=== PATIENT | male | born 1945 | race Caucasian/White ===

== ENCOUNTER 2018-09-24 04:48 | Inpatient (IN) ==
--- NOTE | 2018-08-25 09:05 | PAT Medication Instructions ---
Medication Instructions Date of Service August 25, 2018 Home Medications albuterol sulfate 1 inh INHALATION QID PRN amlodipine 5 mg PO HS aspirin [Aspir-Low] 81 mg PO HS clopidogrel 75 mg PO QAM colesevelam [WelChol] 3 tab PO BID cranberry 1,000 mg PO QPM docusate sodium [Stool Softener] 100 mg PO BID fenofibrate 160 mg PO QPM finasteride 5 mg PO QPM glimepiride 2 mg PO QAM metformin 1,000 mg PO BID omeprazole 20 mg PO QAM tamsulosin 0.4 mg PO HS valsartan-hydrochlorothiazide 2 tab PO QAM ASK your prescriber and surgeon clopidogrel 75 mg PO QAM Per cardiology, OK to hold for 5 days before surgery. This will need to be held for at least 7 days (last dose Saturday 09/16) prior to surgery in order to do spinal anesthesia (the preferred method). STOP taking 48 hours before surgery colesevelam [WelChol] 3 tab PO BID fenofibrate 160 mg PO QPM DO NOT take the morning of surgery docusate sodium [Stool Softener] 100 mg PO BID glimepiride 2 mg PO QAM metformin 1,000 mg PO BID valsartan-hydrochlorothiazide 2 tab PO QAM Take morning of surgery With a small sip of water, OTHERWISE NOTHING TO EAT OR DRINK AFTER MIDNIGHT: albuterol sulfate 1 inh INHALATION QID PRN (if needed, and bring with you to the hospital) omeprazole 20 mg PO QAM Take evening before surgery albuterol sulfate 1 inh INHALATION QID PRN (if needed) amlodipine 5 mg PO HS aspirin [Aspir-Low] 81 mg PO HS cranberry 1,000 mg PO QPM docusate sodium [Stool Softener] 100 mg PO BID finasteride 5 mg PO QPM metformin 1,000 mg PO BID tamsulosin 0.4 mg PO HS Other Notes If you have any questions please call us at [phone] or [phone] or [phone] or [phone]
--- NOTE | 2018-08-25 13:09 | Anesthesiology Consultation ---
Date of Service August 25, 2018 Assessment & Plan (1) Encounter for pre-operative examination: CHECK BSG STAT AM DOS Chart Review Chart Review: Acceptable Risk for Surgery and Patient seen in Pre Admission Testing Cardiac clearance 07/16/2018: "From a cardiac standpoint he is currently stable. Symptoms of dyspnea on exertion as well as exercise tolerance is now improved... I recommended him to continue current medical therapy. Recognition is to continue dual antiplatelet therapy until December. He may proceed with knee replacement surgery. The risk is average for perioperative cardiovascular event. Aspirin can be held for 5-7 days and Plavix can be held for 5 days prior to surgery if significant bleeding is expected. The rest of the cardiac medical therapy should be continued perioperatively." *pt aware that Plavix must be held x 7 days for spinal. He will check with cardio re: holding Plavix longer. *PT IS A DIFFICULT INTUBATION-- H/O FIBEROPTIC INTUBATION; PT CARRIES NOTE FROM [facility] RE: DIFFICULT INTUBATION (IN CHART)* Teaching & Discussion Instructed NPO after midnight before surgery, except medications with 15 cc of water. Medication instructions provided according to the PAT guidelines. Plavix instructions per cardiology and surgeon. Patient is aware the Plavix must be held for at least 7 days prior for SAB. Cardio clearance states Plavix may be held for 5 days. Patient made aware, pt to check with cardiology to see if can be held x 7 days. History Surgery Operation Date: 09/24/18 08:45 Proposed Procedures p Right Total Knee Arthroplasty - Alexy Dale MD Height/Weight Height: 5 ft 8 in Weight: 117.3 kg Allergies Allergy/AdvReac Type Severity Reaction Status Date / Time atorvastatin Allergy Intermediate Muscle Pain Verified 08/19/18 11:46 erythromycin base Allergy Intermediate UPSET Verified 08/19/18 11:46 STOMACH ezetimibe [From Zetia] Allergy Intermediate STOMACH Verified 08/19/18 11:46 PAIN fluvastatin Allergy Intermediate NECK PAIN Verified 08/19/18 11:46 niacin Allergy Intermediate HEART Verified 08/19/18 11:46 PALPITATIONS pravastatin Allergy Intermediate MUSCHLE Verified 08/19/18 11:46 ACHES Quinolones Allergy Intermediate SLEEP Verified 08/19/18 11:46 DISTURBANCE simvastatin Allergy Intermediate MUSCHLE Verified 08/19/18 11:46 ACHE Penicillins Allergy Mild Rash Verified 08/19/18 11:46 KASSY Inhibitors AdvReac Mild Cough Verified 08/19/18 11:46 Medications Home Medications Medication Instructions Recorded Confirmed Last Taken albuterol sulfate 1 inh INHALATION QID PRN 08/19/18 08/19/18 Unknown amlodipine 5 mg PO HS 08/19/18 08/19/18 Unknown aspirin [Aspir-Low] 81 mg PO HS 08/19/18 08/19/18 Unknown clopidogrel 75 mg PO QAM 08/19/18 08/19/18 Unknown colesevelam [WelChol] 3 tab PO BID 08/19/18 08/19/18 Unknown cranberry 1,000 mg PO QPM 08/19/18 08/19/18 Unknown docusate sodium [Stool Softener] 100 mg PO BID 08/19/18 08/19/18 Unknown fenofibrate 160 mg PO QPM 08/19/18 08/19/18 Unknown finasteride 5 mg PO QPM 08/19/18 08/19/18 Unknown glimepiride 2 mg PO QAM 08/19/18 08/19/18 Unknown metformin 1,000 mg PO BID 08/19/18 08/19/18 Unknown omeprazole 20 mg PO QAM 08/19/18 08/19/18 Unknown tamsulosin 0.4 mg PO HS 08/19/18 08/19/18 Unknown valsartan-hydrochlorothiazide 2 tab PO QAM 08/19/18 08/19/18 Unknown Past Medical History Medical History Anemia BPH (benign prostatic hyperplasia) CAD (coronary artery disease) S/P PCI to LAD with BMS 12/2017 after failed stress test done to evaluate dizziness and SOB. Cancer PRE-CANCEROUS CELLS REMOVED ON SKIN Chronic back pain LOWER BACK Diabetes mellitus, type 2 Hyperlipidemia Hypertension Osteoarthritis Sleep apnea CPAP Past Family History Family History Mother Family history of diabetes mellitus Brother Family history of diabetes mellitus Family hx of colon cancer Father Family hx of colon cancer Past Surgical History Surgical History Difficult airway for intubation PT NOTED HAS LETTER R/T DIFF. AIRWAY WITH LEFT TKA ([place]) 2012 H/O toe surgery History of appendectomy History of cardiac cath DECEMBER 2017 History of carpal tunnel release History of colonoscopy History of heart artery stent DECEMBER 2017-BMS to LAD History of tooth extraction History of total knee replacement LEFT Hx of prostate biopsy Past Anesthesia History Difficult Airway (h/o fiberoptic intubation, pt has letter in chart for this) and No Family Hx of Anesthesia Complications History of PONV No Motion Sickness Screening History of Motion Sickness: Yes (occ) Social History Smoking Status: Never smoker Do You Dip or Chew Tobacco: No Hx Alcohol Use: Yes Alcohol type: beer and wine alcohol intake frequency: holidays/special occasions only Hx Substance Use: No substance use type: does not use Exercise / Class Metabolic Activity III < 4 Walking/Shop/Light housework (+SOB "huffing and puffing" with 1 FOS, no chest pain.) Review of Systems Pt denies any recent chest pain, shortness of breath, palpitations, cough, fever or URI. Physical Exam Vital Signs BP: 114/69 P: 64bpm SPO2: 98% RA T: 98.3 F R: 16 ENMT Mouth: + dentures (partial upper); no chipped teeth and no loose teeth Thyromental Distance: < 3.5 Finger Breadths Mallampati Class: II Neck + thick neck (VERY THICK), + limited neck extension and + facial hair (short trimmed goatee) Respiratory normal respiratory effort Auscultation: lungs clear to auscultation bilaterally Cardiovascular Rate/Rhythm: regular rate and regular rhythm Heart Sounds: no murmur Vessels: no carotid bruit Extremities: no edema Testing Electrocardiogram Date: 03/19/18 Findings: + SB @ (58) Frequent PVCs. Right bundle branch block. Chest X-Ray Date: 03/20/18 Stable appearance of the chest. No evidence of acute cardiopulmonary disease. Echocardiogram Date: 05/21/18 EF: 55% LV systolic function is normal. Top normal to mildly dilated left ventricular chamber size. LV wall thickness is mildly increased. Left ventricular wall motion is normal. Right ventricular cavity size is normal. Left atrium is moderately enlarged. Right atrial size is normal. There is aortic valve sclerosis without stenosis or significant regurgitation. No pericardial effusion noted. Stress Test Date: 07/15/17 Type: exercise Resting EF: 71% Small sized partially reversible defect of mild intensity present involving apical inferior segment. This may suggest small area of myocardial ischemia. No EKG evidence of Lexiscan induced myocardial ischemia. Small sized fixed defect of mild intensity present involving the apex. This is probably an attenuation artifact. Gated SPECT images revealed normal myocardial thickening and wall motion. Cardiac Catheterization Date: 01/12/18 Intervention: + BMS placed and + PCI (distal LAD) The coronary arteries have diffuse minor irregularities with nonobstructive coronary artery disease and have significant 1 vessel disease. There was complete revascularization achieved. The percutaneous coronary intervention of the distal LAD was successful. Other Testing Holter monitor 02/18/2018 Duration: 24 hours. Quality: Good. Dominant rhythm is sinus bradycardia with right bundle branch block. Rare isolated PACs. Rare PVCs with 2 episodes of ventricular triplets. No symptoms reported. Laboratory Results 08/25/18 13:49 03 13:49 Blood Type A Positive 08/25/18 13:49 Antibody Screen NEGATIVE 08/25/18 13:49 PT 10.8 Seconds (9.0-12.0) 08/25/18 13:49 INR 1.1 (0.9-1.1) 08/25/18 13:49 APTT 25.4 Seconds (21.0-31.0) 08/25/18 13:49 Hemoglobin A1c 6.9 % (4.5-5.6) H 08/25/18 13:49
[2018-08-25 15:52] LABS: Basophils # (auto) 0.02 K/uL (0-0.2); Basophils % (auto) 0.5 %; Eosinophils # (auto) 0.01 K/uL (0-0.5); Eosinophils % (auto) 0.3 %; Hematocrit (blood only) 37.8 % (42-52); Hemoglobin 12.8 g/dL (14.0-18.0); Immature Granulocytes # (auto) 0.01 K/uL (0.00-0.02); Immature Granulocytes % (auto) 0.3 %; Lymphocytes # (auto) 0.97 K/uL (1.2-3.4); Lymphocytes % (auto) 25.9 %; Mean Corpuscular Hgb Conc 33.9 g/dL (32-36); Mean Corpuscular Volume 86.1 fL (80-100); Mean Platelet Volume 10.1 fL (7.4-10.4); Monocytes % (auto) 18.7 %; Neutrophils # (auto) 2.04 K/uL (1.4-6.5); Neutrophils % (auto) 54.3 %; Platelet Count 196 K/uL (130-400); RDW Coefficient of Variation 14.4 % (11.5-14.5); RDW Standard Deviation 45.2 fL (36.4-46.3); Red Blood Count 4.39 M/uL (4.7-6.1); White Blood Count 3.75 K/uL (4.8-10.8)
[2018-08-25 16:02] LABS: INR 1.1 (0.9-1.1); Partial Thromboplastin Ratio 0.9; Partial Thromboplastin Time 25.4 Seconds (21.0-31.0); Prothrombin Time 10.8 Seconds (9.0-12.0)
[2018-08-25 16:19] LABS: Albumin Level 3.8 gm/dl (3.4-5.0); BUN Creatinine Ratio 16.4 (10-20); Calcium 9.2 mg/dl (8.5-10.1); Creatinine Clr Calc Pharmacy 45.3 ml/min; Est GFR (African American) 42.6; Est GFR (Non-African American) 36.8; Potassium 4.5 mmol/L (3.5-5.1)
[2018-08-25 16:38] LABS: Estimated Average Glucose 151 mg/dl; Hemoglobin A1C 6.9 % (4.5-5.6)
--- NOTE | 2018-09-23 18:10 | History and Physical Report ---
DATE OF ADMISSION: 09/24/2018 CHIEF COMPLAINT: Chronic right knee pain. HISTORY OF PRESENT ILLNESS: This is a 72-year-old male patient of Dr. Dale'juan manuel complaining of chronic right knee pain, longstanding, now progressively getting worse. The patient has failed conservative treatment including intraarticular injections, home exercise program and the use of a brace. The patient has increased pain with weightbearing activities and his pain does interfere with his activities of daily living. The patient has been diagnosed with end-stage osteoarthritis per clinical and radiographic exam. PAST MEDICAL HISTORY: Hypertension, hypercholesterolemia, sleep apnea with CPAP, diabetes mellitus, rheumatoid arthritis, neck problems, low back problems, acid reflux, obesity, BPH. PAST SURGICAL HISTORY: Left knee replacement, appendectomy, carpal tunnel release, coccygeal cyst removal, toe surgery. FAMILY HISTORY: Noncontributory. REVIEW OF SYSTEMS: Chronic right knee pain and instability. Otherwise, denies any shortness of breath, chest pain, nausea, vomiting or other joint complaints. MEDICATIONS: Omeprazole 20 mg daily, valsartan 80/12.5 daily, fenofibrate 150 mg daily, metformin 1000 mg twice daily, Welchol 625 mg 6 tablets daily, vitamin B12, aspirin 81 mg daily, finasteride 5 mg daily, oxybutynin 5 mg twice daily. ALLERGIES: INCLUDE KASSY INHIBITORS, ATORVASTATIN, ERYTHROMYCIN, LOVASTATIN, NIACIN, PENICILLIN, PRAVASTATIN, QUINOLONES, SIMVASTATIN. PHYSICAL EXAMINATION: GENERAL: Well-developed, well-nourished 72-year-old male in no acute distress. He is alert and oriented x3 and pleasant. HEENT: Normocephalic, atraumatic. Extraocular motions are intact. Pupils are equal, reactive to light. HEART: Regular rate and rhythm, no murmurs. LUNGS: Clear. ABDOMEN: Soft, nontender, bowel sounds are present. EXTREMITIES: Right knee 0-125 degrees of limited range of motion. He has medial joint line tenderness with a positive effusion. He has crepitation with passive range of motion. He has 5/5 strength. NEUROLOGIC: Neurovascularly he is intact in his right lower extremity. DIAGNOSES: Right knee end-stage osteoarthritis, hypertension, hypercholesterolemia, sleep apnea with CPAP, diabetes mellitus, rheumatoid arthritis, neck problems, sciatica, acid reflux, obesity and benign prostatic hypertrophy. PLAN: The patient was advised of his diagnosis. Indications, risks, benefits, postop course have all been reviewed. The patient wishes to proceed with a right total knee arthroplasty. Necessary consent forms, preoperative testing and clearances will be obtained.
[2018-09-24] MEDS ORDERED: FAMOTIDINE 20 MG TAB PO SCH (06:00)
[2018-09-24] MEDS ORDERED: ACETAMINOPHEN 500 MG TAB PO SCH (06:00)
[2018-09-24] MEDS ORDERED: METOCLOPRAMIDE HCL 10 MG TABLET PO SCH (06:00)
[2018-09-24] MEDS ORDERED: GABAPENTIN 300 MG PO SCH (06:00)
[2018-09-24] MEDS ORDERED: ROPIVACAINE 0.5% HCL/PF 150 MG, BUPIVACAINE 0.5% MPF 30 ML, EPINEPHrine 30MG/30ML (OR U... INFIL SCH (06:00)
[2018-09-24] MEDS ORDERED: VANCOMYCIN HCL 1,750 MG in SODIUM CHLORIDE 0.9% 500 ML IV SCH ×2 (06:00→20:00)
[2018-09-24] MEDS ORDERED: CeleBREX 200 MG CAP PO SCH (06:00)
[2018-09-24] MEDS ORDERED: LR 500ML BOLUS, THEN 15ML/HR IV SCH (06:00)
[2018-09-24] MEDS ORDERED: ROPIVACAINE 0.5% 5 MG/ML 30 ML VIAL ONE (06:25)
[2018-09-24] MEDS ORDERED: BUPIVACAINE 0.5 % 5 MG/1 ML PF 10ML VIAL ONE (06:25)
[2018-09-24] MEDS ORDERED: fentaNYL citrate 100 MCG/2 ML VIAL ONE (06:51)
[2018-09-24] MEDS ORDERED: MIDAZOLAM HCL 1 MG/ML 2ML VIAL ONE ×3 (06:51→09:15)
[2018-09-24] MEDS ORDERED: POVIDONE-IODINE OP SOLN 30 ML BTL ONE (07:03)
[2018-09-24] MEDS ORDERED: BACITRACIN INJ 50,000 UNIT VIAL ONE (07:03)
[2018-09-24] MEDS ORDERED: ORTHO JOINT ANESTHETIC ONE (07:03)
--- NOTE | 2018-09-24 07:17 | History & Physical Bridge Note ---
Date of Service September 24, 2018 History & Physical Bridge Note I have examined the patient, reviewed the History & Physical and in the interval since the performance of the History & Physical I have noted the following changes of clinical significance: no changes noted
[2018-09-24] MEDS ORDERED: ATROPINE SULFATE 0.1 MG/ML 10ML SYR IV PRN (08:12)
[2018-09-24] MEDS ORDERED: ONDANSETRON INJ 2 MG/ML 2 ML VIAL IV PRN ×2 (08:12→10:13)
[2018-09-24] MEDS ORDERED: fentaNYL citrate 100 MCG/2 ML VIAL IV PRN (08:12)
[2018-09-24] MEDS ORDERED: ePHEDrine sulfate 50 MG/ML AMP IV PRN (08:12)
--- NOTE | 2018-09-24 09:54 | Post Operative Brief Note ---
Immediate Post Op Note v1 Date of Surgery September 24, 2018 Pre & Post Diagnosis Operation Date: 09/24/18 07:15 Pre-Op Diagnosis: Right Knee End-Stage Osteoarthritis Post-Op Diagnosis: Right Knee End-Stage Osteoarthritis Procedure Operation Date: 09/24/18 07:15 Actual Procedures p Right Total Knee Arthroplasty(Right) - Alexy Dale MD Surgeon Alexy Dale MD Mechanical Integrity Specialist ale ruelas Estimated Blood Loss 5 Findings Consistent with Post-Op Diagnosis Specimens bone cuts Drains Hemovac Drain (10 Fr Dual) Anesthesia Type Spinal MAC Complications none Disposition Accompanied Patient To Recovery: No Disposition: Recovery Room Overlapping Procedure I was immediately available: during the entire case.
[2018-09-24] MEDS ORDERED: NALOXONE HCL 0.4 MG/1 ML VIAL/CARP IV PRN (10:13)
[2018-09-24] MEDS ORDERED: BISACODYL 10 MG SUPP PR PRN (10:13)
[2018-09-24] MEDS ORDERED: ALBUTEROL HFA 8 GM INHALER INH PRN (10:13)
[2018-09-24] MEDS ORDERED: METOCLOPRAMIDE HCL INJ 5 MG/ML 2 ML VIAL IV PRN (10:13)
[2018-09-24] MEDS ORDERED: HYDROmorphone INJ 0.5 MG/0.5 ML SYR IV PRN (10:13)
[2018-09-24] MEDS ORDERED: MAGNESIUM HYDROXIDE SUSP 30 ML UDC PO PRN (10:13)
[2018-09-24] MEDS ORDERED: VANCOMYCIN CONSULT ACTIVE PRN (10:13)
--- NOTE | 2018-09-24 10:33 | Anesthesiology Progress Note ---
Date of Service September 24, 2018 Anesthesia Post Procedure Vital Signs Vital Signs: Temp Pulse Pulse Resp BP Pulse Ox 09/24/18 10:15 36.2 C L 54 L 14 135/89 100 09/24/18 10:05 59 L 15 159/65 H 100 09/24/18 09:55 36.4 C L 58 L 16 172/59 H 100 09/24/18 05:34 36.8 C 61 20 167/70 H 94 Pain Intensity Right Hip: Pain Intensity: 4 Notes Mental Status: alert / awake / arousable Patient Amnestic to Procedure: Yes Nausea / Vomiting: adequately controlled Pain: adequately controlled Airway Patency, RR, SpO2: stable & adequate BP & HR: stable & adequate Neuraxial Anesthesia: was administered and sensory block is resolving Anesthetic Complications: no major complications apparent
--- NOTE | 2018-09-24 10:34 | Operative Report ---
Post Operative Report Pre & Post Diagnosis Operation Date: 09/24/18 07:15 Pre-Op Diagnosis: Right Knee End-Stage Osteoarthritis Post-Op Diagnosis: Right Knee End-Stage Osteoarthritis Procedure Operation Date: 09/24/18 07:15 Actual Procedures p Right Total Knee Arthroplasty(Right) - Alexy Dale MD Surgeon Alexy Dale MD Bulldozer Mechanic ale davis Estimated Blood Loss 5 Findings Consistent with Post-Op Diagnosis Specimens Bone cuts Drains 2 Hemovac Anesthesia Type Spinal MAC Complications none Disposition Accompanied Patient To Recovery: No Disposition: Recovery Room Indications 73-year-old male with progressive osteoarthritis in his right knee. He has varus knee [id number] medial compartment and moderately advanced patellofemoral osteoarthritis. Patient's failed conservative management. Patient has successful left knee replacement in the past. Description of Procedure Patient taken to the operating room placed supine on the operating table and anesthetized under spinal MAC regional block anesthesia. Exam under anesthesia demonstrated 10-15 degree flexion contracture with flexion to 120 degrees. A pneumatic tourniquet was placed about the thigh of the right lower extremity. The right lower extremity was prepped and draped in usual fashion. Leg was elevated exsanguinated with an Esmarch bandage and the pneumatic was raised to 325 mm mercury. An anterior incision was made across the right knee. The skin was incised longitudinally subcutaneous flaps were elevated and an incision was made through the medial retinaculum extending up into the mid third of the quadriceps tendon and extended down to the medial tibial tubercle. Intra- articular findings demonstrated tricompartmental DJD [id number] medial compartment tricompartmental osteophytes grade 3 patellofemoral OA. Patient had a posterior horn lateral meniscus tear patient had a root detachment medial meniscus. The knee was exposed by excising the infrapatellar fat pad, excising the meniscal remnants and cruciate ligaments or remnants of the ligaments. Any inflamed synovial tissue was resected. The fat pad over the anterior femur was resected for placement of the component in that area. The lateral synovial bands were release. I did not have to do any releases to balance ligaments. I used the persona posterior stabilized total knee arthroplasty system [employer]. The femur was exposed. The custom femoral cutting block was pinned in position. The distal femoral cutting block was applied. The distal femoral cut was made with the oscillating saw. The size 11 4-in-1 cutting block was placed. The anterior and posterior chamfer cuts were made. The knee was extended and a subperiosteal peel lateral release was performed around the patella. The patella width was measured and width was reproduced using freehand cut technique. The 35 x 9 millimeter symmetrical patella was used. 3 drill holes are made for the pegs. The tibia was exposed. A custom tibial cutting block was positioned and drill holes were made for the cutting guide. Cutting guide was placed and the proximal cut was made with the oscillating saw. All osteophytes were resected. The lamina director of strategic initiatives was used to assess ligamentous balance and the ligaments were balanced in extension and flexion. The tibia was reexposed and measured for a size F right tibial component. This was externally rotated in line with the tibial tubercle and the fixation pins were drilled. The proximal tibia was fashioned with the drill and punch. The size 11 PS femoral trial was inserted. The trial PS inserts were used. The 12 mm insert gave balanced ligaments through full range of motion. The patella tracked centrally. the trials were removed. The orthomix anesthetic cocktail was injected per protocol. The knee was then copiously irrigated with pulsatile lavage antibiotic solution with bacitracin. The final components were cemented with Simplex cement. The final components were persona right size 11 narrow femur size F right tibia 12 mm PS bearing 4 tibia and 35 x 9 symmetrical patella. While the cement cured with the knee in full extension the Betadine soak was used per protocol. After the cement cured, the knee joint was copiously irrigated with antibiotic solution with bacitracin. 2 drains were brought out laterally and connected to a Hemovac. The quadriceps tendon and medial retinaculum were closed with interrupted [id number] #1 Vicryl sutures. The knee was taken through a full range of motion and repair was secure. The subcutaneous tissues were closed with 2-0 Vicryl sutures and skin was closed with kady. Sterile dressings were applied and the patient tolerated the procedure well. Ale DAVIS my physician physicians assistant, assisted in soft tissue retraction instrument management leg positioning the closure and will participate in the postoperative care of the patient. I attest to the content of the Intraoperative Record and any orders documented therein. Any exceptions are noted below.
--- NOTE | 2018-09-24 10:52 | XRay Report ---
XR knee RT 2V routine HISTORY: 73 years-old Male Surgical Post Op right knee total joint arthroplasty COMPARISON: None available TECHNIQUE: 2 views of the right knee FINDINGS: Right knee total joint arthroplasty with patellar resurfacing demonstrates satisfactory alignment wit hout acute fracture or retained foreign body. Anterior midline skin kady are noted along with expe cted postsurgical soft tissue swelling and deep tissue air with surgical drainage catheter in place. IMPRESSION: Right knee total joint arthroplasty and patella resurfacing with satisfactory alignment. The above report was generated using voice recognition software. It may contain grammatical, syntax o r spelling errors. Electronically signed by: Jm Mack M.D. 09/24/2018 10:51 AM
[2018-09-24] MEDS ORDERED: PHARMACY GLYCEMIC MGMT CONSULT PRN (11:49)
[2018-09-24] MEDS ORDERED: GLUCOSE 40% GEL 15 GM TUBE PO PRN (13:00)
[2018-09-24] MEDS ORDERED: GLUCAGON FOR INJ 1 MG VIAL IM PRN (13:00)
[2018-09-24] MEDS ORDERED: DEXTROSE 50% 50 ML SYRINGE IV PRN (13:00)
[2018-09-24] MEDS ORDERED: CARBOHYDRATES FOR HYPOGLYCEMIA PO PRN (13:00)
[2018-09-24] MEDS ORDERED: GLUCOSE 10 TABS/TUBE PO PRN (13:00)
--- NOTE | 2018-09-24 13:01 | Pharmacy Report ---
Glycemic Control Consultation - Date of Service September 24, 2018 - Scope Scope: Glycemic Pharmacist consulted by Julio Huffman PA-C on 09/24/18 for glycemic control and to write orders per [facility] inpatient glycemic control protocol - Objective Weight: 121.336 kg Accuchecks BSG (last 24hrs): 09/24/18 09/24/18 09/24/18 05:18 10:02 11:44 POC Glucose 119 H 114 H 110 H HbA1c: Hemoglobin A1c 6.9 % (4.5-5.6) H 08/25/18 13:49 - Recent Pertinent Medications Outpatient Anti-diabetic Regimen: * Glimepiride 2mg PO daily * Metformin 1g PO BID Risk Factors for Insulin Resistance: * Recent Surgery: S/p TKA * Diet: Type 2 DM - Assessment & Plan Assessment & Plan: ASSESSMENT: * 73 year old male, s/p TKA, blood sugars at goal, and A1c acceptable * Pt is maintained on oral antidiabetic agents as an outpatient * Oral agents are not recommended for inpatient use d/t drug interactions, changing PO intake, and difficulty titrating for acute hyper/hypoglycemia. ADA recommends re-initiating outpatient oral agents 1-2 days prior to discharge if/when appropriate if they were held on admission. * Will hold oral agents for admission and utilize SQ basal bolus insulin regimen which is the recommended regimen for inpatient glycemic control. * Will initiate weight based insulin dosing for insulin pb patient and titrate based on BSG trends. * No basal at this time for euglycemia and no steroids received * ADA & AACE recommend a goal blood sugar range 140-180 mg/dl for the majority of critically ill & non-critically ill patients. However, more stringent targets may be selected in individual cases. Will utilize more stringent goal of 110-140mg/dl based on patient age & comorbidities. Additionally, tighter glycemic control is warranted to facilitate wound/infection healing. PLAN FOR INPATIENT GLYCEMIC CONTROL: * Holding outpatient oral diabetes medications * Basal insulin - none a this time * Bolus insulin * NovoLog per scale ACHS or Q6hrs while NPO * Goal Range: Low 110 mg/dL - High 140 mg/dL * Correction Factor: 25 mg/dL/unit * Nutritional / Prandial insulin per carb ratio of 1 unit per 8 grams CHO consumed * Please note that the plan above was derived based on current level of insulin resistance and hospital stress. These recommendations are appropriate for inpatient admission only. Plan of care upon discharge will need to be reassessed to avoid potential outpatient hypo/hyperglycemia. Thank you.
--- NOTE | 2018-09-24 13:03 | Consultation ---
Date of Consultation September 24, 2018 Assessment & Plan (1) Status post total knee replacement, right: POD #0 s/p R TKA by Dr. Suyapa ALLRED 5ml tolerated procedure welll pain/wound management per ortho activity as directed by ortho DVT ppx as directed by ortho monitor cbc for abl anemia and bmp for renal function (2) CAD (coronary artery disease): denies CP or SOB hx of BMS to LAD December 2017 Dual antiplatelet therapy resumed with ASA and plavix ( to be on for 1 year) Continue valsartan, patient is not on beta anjel therapy (ecg shows sinus farooq, pulse currently 51) (3) Diabetes mellitus, type 2: Last A1C 6.9 Pharmacy consulted per ortho for diabetic management (4) Hypertension: blood pressure stable, continue amlodipine and losartan (5) Hyperlipidemia: encourage heart healthy diet Continue Welchol Intolerant to statins (6) Sleep apnea: CPAP at HS (7) BPH (benign prostatic hyperplasia): continue flomax and finasteride (8) GERD (gastroesophageal reflux disease): PPI, [id number] Asymptomatic (9) DVT prophylaxis: SCDs per ortho Disposition: per orthopedics Follow up: PCP Dr. Monroe upon discharge Patient was seen and examined in collaboration with Dr. Li, please see addendum Starting 09/25/18 patient will be under the care of Dr. Meadows Thank you for this consultation. We will follow the patient with you during their hospital stay. You can reach a member of the [facility] Hospitalist Team 06/01 via pager @ [phone]. Supervising Physician Co-Signing Physician Notes Care coordinated with Conchis CHRIS. Agree with able note. Patient seen and examined. Please refer to her notes for full details. Vital signs reviewed. Physical exam: General exam: Alert and oriented. Not in acute distress. CVS: S1 and S2 heard, regular rate and rhythm, no murmurs. RS: Clear to auscultation, no wheezing or crackles. ABD: Soft, bowel sounds present, nontender, no distention. CRYPTOZOOLOGIST: Nonfocal. EXT: s/p RT TKA Labs: Reviewed. Assessment and plan: S/p RT TKA management as per ortho Hx of CAd asymptomatic home meds Other diagnosis and plan of care as per Conchis johns MD. History of Present Illness Reason for Consultation: Post operative medical management Requesting Physician: Dr. Dale Attending Physician: Alexy Dale MD History of Present Illness This is a 73 yr old M who has a significant pmh of CAD s/p BMS to distal LAD 12/2017, HTN, HLD, T2DM, LOBO on Cpap, CKD-3, BPH Gerd, Morbid obesity who presents to [facility] for elective R TKA by Dr. Dale. is at bedside. Pt failed outpatient conservative management for end stage OADJD. Post operatively overall feels well. Had mild dizziness when being transported from PACU to room. Otherwise denies current pain, f/c/s, chest pain, sob, n/v/d, abd pain. Appetite is good. No acute concerns. Allergies Allergy/AdvReac Type Severity Reaction Status Date / Time atorvastatin Allergy Intermediate Muscle Pain Verified 09/24/18 05:32 ezetimibe [From Zetia] Allergy Intermediate STOMACH Verified 09/24/18 05:32 PAIN fluvastatin Allergy Intermediate NECK PAIN Verified 09/24/18 05:32 niacin Allergy Intermediate HEART Verified 09/24/18 05:32 PALPITATIONS pravastatin Allergy Intermediate MUSCHLE Verified 09/24/18 05:32 ACHES Quinolones Allergy Intermediate SLEEP Verified 09/24/18 05:32 DISTURBANCE simvastatin Allergy Intermediate MUSCHLE Verified 09/24/18 05:32 ACHE Penicillins Allergy Mild Rash Verified 09/24/18 05:32 erythromycin base AdvReac Intermediate UPSET Verified 09/24/18 05:32 STOMACH KASSY Inhibitors AdvReac Mild Cough Verified 09/24/18 05:32 Home Medications Home Medications Medication Instructions Recorded Confirmed Type albuterol sulfate 1 inh INHALATION QID PRN 08/19/18 09/24/18 History amlodipine 5 mg PO HS 08/19/18 09/24/18 History aspirin [Aspir-Low] 81 mg PO HS 08/19/18 09/24/18 History clopidogrel 75 mg PO QAM 08/19/18 09/24/18 History colesevelam [WelChol] 3 tab PO BID 08/19/18 09/24/18 History cranberry 1,000 mg PO QPM 08/19/18 09/24/18 History docusate sodium [Stool Softener] 100 mg PO BID 08/19/18 09/24/18 History fenofibrate 160 mg PO QPM 08/19/18 09/24/18 History finasteride 5 mg PO QPM 08/19/18 09/24/18 History glimepiride 2 mg PO QAM 08/19/18 09/24/18 History metformin 1,000 mg PO BID 08/19/18 09/24/18 History omeprazole 20 mg PO QAM 08/19/18 09/24/18 History tamsulosin 0.4 mg PO HS 08/19/18 09/24/18 History Vitamin D3 1 tab PO DAILY 09/24/18 09/24/18 History valsartan 160 mg PO DAILY 09/24/18 09/24/18 History vitamin W90-alexz acid 1 tab PO DAILY 09/24/18 09/24/18 History Patient History Family History Mother Family history of diabetes mellitus Brother Family history of diabetes mellitus Family hx of colon cancer Father Family hx of colon cancer Social History Preferred Language: Ukrainian Communication Ability: Effective Explosive Operator Required: No Beliefs That Will Affect Care: None Current Living Situation: Spouse Other Information That Helps Us Care for You: No Feels Safe at Home: Yes Safety Concerns: Feels Safe At This Time Smoking Status: Never smoker Hx Alcohol Use: Yes Hx Substance Use: No Review of Systems As noted per HPI, 10 systems reviewed and negative unless noted above. Physical Exam Vital Signs (Past 24 Hours): Last Vital Signs Temp 36.8 C 09/24/18 12:26 Pulse 51 L 09/24/18 12:26 Resp 19 09/24/18 12:26 BP 145/75 H 09/24/18 12:26 Pulse Ox 97 09/24/18 12:26 Physical Exam: Gen: WD/WN, M, morbidly obese, NAD, sitting up in bed, pleasant, conversing easily Head: Normocephalic, Atraumatic Eyes: Sclera normal, no conjunctival injection, PERRLA, EOMI ENT: Gross hearing intact, normal pharynx, mucous membranes moist Neck: supple, no adenopathy, No JVD, no bruit, Resp: Clear to auscultation b/l, no wheeze, rales, rhonchi. Normal insp/exp effort, no accessory muscle use CV: Regular rate, regular rhythm, no murmur, rub, gallop, or ectopy Abd: +protuberant abdomen, +BS x 4, soft, nontender, nondistended Musculoskeletal: moves extremities active rom x 2, strength intact, lower ext not assessed given recent surgery, NVI distally, good wafer mounter strength Extremities: No edema bilaterally, RLE dressing CDI, SCDS in place Skin: warm, moist, no rash, negative turgor, cap refill < 2sec Neuro: Alert and oriented x 3, speech normal, good mood/affect, cran nerve 2-12 intact grossly : deferred Gen: WD/WN, M/F, NAD, sitting up in bed, pleasant, conversing easily Head: Normocephalic, Atraumatic Eyes: Sclera normal, no conjunctival injection, PERRLA, EOMI ENT: Gross hearing intact, normal pharynx, mucous membranes moist Neck: supple, no adenopathy, No JVD, no bruit, Resp: Clear to auscultation b/l, no wheeze, rales, rhonchi. Normal insp/exp effort, no accessory muscle use CV: Regular rate, regular rhythm, no murmur, rub, gallop, or ectopy Abd: +BS x 4, soft, nontender, nondistended Musculoskeletal: moves extremities active rom x 4, strength intact, good wafer mounter strength Extremities: No edema bilaterally Skin: warm, moist, no rash, negative turgor, cap refill < 2sec Neuro: Alert and oriented x 3, speech normal, good mood/affect, cran nerve 2-12 intact grossly : deferred Results & Data Laboratory Results Pre op lab work hgb 12.8 A1C 6.9 Cr 1.78 Diagnostic Findings Knee Xray: IMPRESSION: Right knee total joint arthroplasty and patella resurfacing with satisfactory alignment. Medications Administered Discontinued Medications Acetaminophen (Tylenol) 1,000 mg PO PREOP [facility] Stop: 09/24/18 18:00 Last Admin: 09/24/18 05:52 Dose: 1,000 mg Documented by: [id number] Bacitracin (Bacitracin) Confirm Administered Dose 50,000 units .ROUTE .K-MED ONE Stop: 09/24/18 07:04 Last Admin: 09/24/18 09:12 Dose: 50,000 units Documented by: [id number] Famotidine (Pepcid) 20 mg PO PREOP [facility] Stop: 09/24/18 18:00 Last Admin: 09/24/18 05:52 Dose: 20 mg Documented by: [id number] Gabapentin (Neurontin) 300 mg PO PREOP [facility] Stop: 09/24/18 18:00 Last Admin: 09/24/18 05:52 Dose: 300 mg Documented by: [id number] Ropivacaine 150 mg/Bupivacaine HCl 30 ml/Epinephrine HCl 0.15 mg/Ketorolac Tromethamine 30 mg/Ketamine HCl 10 mg/ Clonidine HCl 100 mcg/ Sodium Chloride 92.35 mls @ 0 mls/hr INFIL TODAY@0600 [facility] Stop: 09/24/18 06:01 Last Admin: 09/24/18 09:11 Dose: 93.35 mls/hr Documented by: [id number] Lactated Ringer's (Lr) 1,000 mls @ 15 mls/hr IV .Q24H [facility] Stop: 09/24/18 18:00 Last Infusion: 09/24/18 07:47 Dose: 0 mls/hr Documented by: [id number] Admin: 09/24/18 05:26 Dose: 15 mls/hr Documented by: [id number] Vancomycin HCl 1,750 mg/ (Sodium Chloride) 535 mls @ 200 mls/hr IV PREOP [facility] Stop: 09/24/18 18:00 Last Infusion: 09/24/18 11:17 Dose: 0 mls/hr Documented by: [id number] Admin: 09/24/18 05:25 Dose: 200 mls/hr Documented by: [id number] Metoclopramide HCl (Reglan) 10 mg PO PREOP [facility] Stop: 09/24/18 18:00 Last Admin: 09/24/18 05:52 Dose: 10 mg Documented by: [id number] Miscellaneous (Ortho Joint Anesthetic) Confirm Administered Dose 1 ea .ROUTE .STK-MED ONE Stop: 09/24/18 07:04 Last Admin: 09/24/18 09:13 Dose: Not Given Documented by: [id number] Povidone Iodine (Betadine Ophthalmic Prep) Confirm Administered Dose 30 ml .ROUTE .STK-MED ONE Stop: 09/24/18 07:04 Last Admin: 09/24/18 09:12 Dose: 30 ml Documented by: [id number] ECG Rhythm: sinus bradycardia Findings: + PVC Additional Comments: QTC 463ms (1) BPH (benign prostatic hyperplasia) Lower urinary tract symptom presence: unspecified whether lower urinary tract symptoms present Qualified Code(s): N40.0 - Benign prostatic hyperplasia without lower urinary tract symptoms (2) Sleep apnea Sleep apnea type: unspecified type Qualified Code(s): G47.30 - Sleep apnea, unspecified (3) Diabetes mellitus, type 2 Diabetes mellitus complication status: with unspecified complications Diabetes mellitus halfway insulin use: without halfway use Qualified Code(s): E11.8 - Type 2 diabetes mellitus with unspecified complications (4) CAD (coronary artery disease) Associated angina: without angina Coronary Disease-Associated Artery/Lesion type: [place] artery [place] vs. transplanted heart: [place] heart Qualified Code(s): I25.10 - Atherosclerotic heart disease of [place] coronary artery without angina pectoris (5) Hyperlipidemia Hyperlipidemia type: unspecified Qualified Code(s): E78.5 - Hyperlipidemia, unspecified (6) GERD (gastroesophageal reflux disease) Esophagitis presence: esophagitis presence not specified Qualified Code(s): K21.9 - Gastro-esophageal reflux disease without esophagitis (7) Hypertension Hypertension type: essential hypertension Qualified Code(s): I10 - Essential (primary) hypertension
[2018-09-24] MEDS: INSULIN ASPART 100 UNITS/ML 3 ML PEN SC SCH ×3 (13:54→20:51)
[2018-09-24] MEDS: SODIUM CHLORIDE 0.9% 1000ML 1,000 ML IV SCH (13:56)
[2018-09-24] MEDS: ACETAMINOPHEN 500 MG TAB PO SCH ×2 (13:56→21:12)
[2018-09-24] MEDS: TRAMADOL HCL 50 MG TABLET PO PRN (17:18)
[2018-09-24] MEDS: ASPIRIN 81 MG ECTAB PO SCH (20:41)
[2018-09-24] MEDS: DOCUSATE SODIUM 100 MG CAP PO SCH (20:41)
[2018-09-24] MEDS: AMLODIPINE BESYLATE 5 MG TAB PO SCH (20:42)
[2018-09-24] MEDS: TAMSULOSIN HCL 0.4 MG CAP PO SCH (20:42)
[2018-09-24] MEDS: FINASTERIDE 5 MG TAB PO SCH (20:42)
[2018-09-24] MEDS: SENNA 8.6 MG TAB PO SCH (20:42)
[2018-09-24] MEDS: OXYCODONE HCL IR 5 MG TAB (IMMEDIATE RELEASE) PO PRN (20:46)
[2018-09-24] MEDS ORDERED: NON-FORMULARY MEDICATION (Docusate Sodium [Stool Softener] 100 MG) PO SCH (21:00)
[2018-09-24] MEDS ORDERED: CRANBERRY 1000 MG PO SCH (21:00)
[2018-09-25] MEDS: ACETAMINOPHEN 500 MG TAB PO SCH ×3 (05:55→20:44)
[2018-09-25 06:54] LABS: Hematocrit (blood only) 31.6 % (42-52); Hemoglobin 10.5 g/dL (14.0-18.0); Mean Corpuscular Hgb Conc 33.2 g/dL (32-36); Mean Platelet Volume 9.8 fL (7.4-10.4); Platelet Count 167 K/uL (130-400); RDW Coefficient of Variation 14.9 % (11.5-14.5); RDW Standard Deviation 47.9 fL (36.4-46.3); Red Blood Count 3.59 M/uL (4.7-6.1); White Blood Count 6.59 K/uL (4.8-10.8)
[2018-09-25 07:30] LABS: BUN Creatinine Ratio 16.1 (10-20); Creatinine Clr Calc Pharmacy 63.2 ml/min; Est GFR (African American) 61.9; Est GFR (Non-African American) 53.4
--- NOTE | 2018-09-25 07:46 | Anesthesiology Progress Note ---
Date of Service September 25, 2018 Anesthesia Post Procedure Vital Signs Vital Signs: Temp Pulse Pulse Resp BP Pulse Ox 09/25/18 03:53 36.7 C 67 18 138/73 96 09/24/18 23:34 37.1 C 59 L 18 166/75 H 98 09/24/18 16:25 37.0 C 53 L 17 147/66 H 97 09/24/18 13:20 36.9 C 56 L 17 138/72 97 09/24/18 12:26 36.8 C 51 L 19 145/75 H 97 09/24/18 11:51 36.6 C 51 L 16 126/74 99 09/24/18 11:20 37 C 52 L 16 146/67 H 100 09/24/18 11:00 52 L 14 148/63 H 99 09/24/18 10:45 53 L 13 144/61 H 99 09/24/18 10:30 53 L 13 148/67 H 100 09/24/18 10:15 36.2 C L 54 L 14 135/89 100 09/24/18 10:05 59 L 15 159/65 H 100 09/24/18 09:55 36.4 C L 58 L 16 172/59 H 100 Pain Intensity Right Hip: Pain Intensity: 4 Notes Mental Status: alert / awake / arousable and participated in evaluation Patient Amnestic to Procedure: Yes Nausea / Vomiting: adequately controlled Pain: adequately controlled Airway Patency, RR, SpO2: stable & adequate BP & HR: stable & adequate Hydration State: stable & adequate Neuraxial Anesthesia: was administered and sensory block resolved Anesthetic Complications: no major complications apparent and Pt Satisfied with anesthetic care
[2018-09-25] MEDS: MULTIVITAMIN TAB PO SCH (08:40)
[2018-09-25] MEDS: CYANOCOBALAMIN 500 MCG TABLET (VITAMIN B-12) PO SCH (08:40)
[2018-09-25] MEDS: OXYCODONE HCL IR 5 MG TAB (IMMEDIATE RELEASE) PO PRN (08:40)
[2018-09-25] MEDS: CHOLECALCIFEROL 1,000 UNITS TAB PO SCH (08:40)
[2018-09-25] MEDS: DOCUSATE SODIUM 100 MG CAP PO SCH ×2 (08:40→20:44)
[2018-09-25] MEDS: CLOPIDOGREL BISULFATE 75 MG TAB PO SCH (08:40)
[2018-09-25] MEDS: VALSARTAN 80 MG TAB PO SCH (08:40)
[2018-09-25] MEDS: PANTOprazole 40 MG TAB PO SCH (08:40)
[2018-09-25] MEDS: INSULIN ASPART 100 UNITS/ML 3 ML PEN SC SCH ×4 (08:41→20:49)
--- NOTE | 2018-09-25 08:43 | Orthopedic Progress Note ---
Date of Service September 25, 2018 Assessment & Plan (1) Right knee DJD: POD #1, Right TKA PT/ OT DVT proph- ASA D/C planning- Home w HH As per medicine. Subjective POD #1, doing well, denies sob, cp, n/v, pain controlled well. Physical Exam Vital Signs (Past 24 Hours): Last Vital Signs Temp 37.2 C 09/25/18 07:30 Pulse 65 09/25/18 07:30 Resp 16 09/25/18 07:30 BP 140/63 09/25/18 07:30 Pulse Ox 936 H 09/25/18 07:30 Physical Exam: Right knee dressings c/d/i, no drainage, no calf tenderness, toes and ankle mobile, A&Ox3.
[2018-09-25] MEDS: TRAMADOL HCL 50 MG TABLET PO PRN ×2 (13:03→20:45)
--- NOTE | 2018-09-25 15:53 | Pharmacy Report ---
Glycemic Control Progress Note - Date of Service September 25, 2018 - Scope Glycemic Pharmacist consulted for glycemic control to write orders per [facility] inpatient glycemic control protocol. - Objective Accuchecks BSG(last 24 hours):: 09/24/18 09/24/18 09/25/18 17:35 20:40 06:15 Glucose 131 H POC Glucose 98 159 H 09/25/18 09/25/18 08:29 12:05 Glucose POC Glucose 164 H 150 H HbA1c:: Hemoglobin A1c 6.9 % (4.5-5.6) H 08/25/18 13:49 - Recent Pertinent Medications The patient is currently receiving: * Correctional Insulin: Novolog Correction per scale ACHS Goal Range: Low 110 mg/dL - High 140 mg/dL Correction Factor: 25 mg/dL/unit * Prandial insulin: Per carb ratio of 1 unit per 8 grams CHO consumed - Outpatient Anti-Diabetic Meds Metformin 1000mg BID, Glimepiride 2mg daily - Assessment & Plan ASSESSMENT: * See progress note from 09/24/18 for more background info, in short: 73 y/o M admitted for R TKA. No steroids given pre- or intra-operatively. * Pt receiving SQ basal bolus insulin regimen for hyperglycemia secondary to baseline DM (outpatient regimen on hold), recent surgery * Patient is currently receiving an average of 11 units of insulin per day * BSGs ranging 98 - 164 mg/dl over the past 24hrs * Changes needed to insulin regimen: * Post-prandial BSGs are in range therefore no changes needed to CF/CR. Minimal amounts of insulin required. PLAN FOR INPATIENT GLYCEMIC CONTROL: * Oral Agents * Restart Metformin 1000mg BIDM tomorrow, 09/26/18 * Bolus insulin * NovoLog per scale ACHS or Q6hrs while NPO * Goal Range: Low 110 mg/dL - High 140 mg/dL * Correction Factor: 25 mg/dL/unit * Nutritional / Prandial insulin per carb ratio of 1 unit per 8 grams CHO consumed RECOMMENDATIONS FOR DISCHARGE: * Diabetes well controlled. Recommend to restart metformin and glimepiride upon discharge. Encourage continued adherence. * Please note that the plan above was derived based on current level of insulin resistance and hospital stress. These recommendations are appropriate for inpatient admission only. Plan of care upon discharge will need to be reassessed to avoid potential outpatient hypo/hyperglycemia. Thank you.
[2018-09-25] MEDS ORDERED: COLESEVELAM HCL PO SCH (16:00)
--- NOTE | 2018-09-25 16:43 | Hospitalist Progress Note ---
Date of Service September 25, 2018 Assessment & Plan (1) Status post total knee replacement, right: POD #1 s/p R TKA by Dr. Dale Pain/wound management per ortho Clinically much better today Management as per (2) CAD (coronary artery disease): denies CP or SOB hx of BMS to LAD December 2017 Dual antiplatelet therapy resumed with ASA and plavix ( to be on for 1 year) Continue valsartan, patient is not on beta anjel therapy (ecg shows sinus farooq, pulse currently 51) Denies any cardiac symptoms (3) Diabetes mellitus, type 2: Last A1C 6.9 Pharmacy consulted per ortho for diabetic management Sugars seems to be stable (4) Hypertension: blood pressure stable, continue amlodipine and losartan Blood pressure remains in the upper side of normal at 152/79 today (5) Hyperlipidemia: encourage heart healthy diet Continue Welchol Intolerant to statins (6) Sleep apnea: CPAP at HS (7) BPH (benign prostatic hyperplasia): continue flomax and finasteride (8) GERD (gastroesophageal reflux disease): PPI, [id number] Asymptomatic (9) DVT prophylaxis: SCDs per ortho Disposition: per orthopedics Follow up: PCP Dr. Monroe upon discharge Medically stable Subjective 09/25 Patient was seen and examined the medical floor Status post right total knee arthroplasty on 09/24 Complaints of feeling unwell likely secondary to use of narcotics Pain is controlled Denies any other significant symptoms Physical Exam Vital Signs (Past 24 Hours): Last Vital Signs Temp 37.4 C 09/25/18 15:06 Pulse 65 09/25/18 15:06 Resp 18 09/25/18 15:06 BP 152/71 H 09/25/18 15:06 Pulse Ox 95 09/25/18 15:06 Physical Exam: Minimal distress at rest Constitutional: WD/WN, vitals as above Eyes: PERRL, conjunctivae normal, anicteric sclerae ENMT: external ear and nose normal, oropharynx normal Neck: trachea midline, no thyromegaly Respiratory: normal respiratory effort Auscultation: lungs clear to auscu ltation bilaterally Cardiovascular: Rate/Rhythm: regular rate and regular rhythm Heart Sounds: normal S1 and normal S2 Gastrointestinal (Abdomen): Inspection/Auscultation: abdomen normal to inspection and normal bowel sounds Percussion/Palpation: abdomen soft; abdomen nontender Neurologic: Alert, awake and oriented x3 Results & Data Laboratory Results Short CBC 04/12/19 Range/Units 06:15 WBC 6.59 (4.8-10.8) K/uL Hgb 10.5 L (14.0-18.0) g/dL Hct 31.6 L (42-52) % Plt Count 167 (130-400) K/uL BMP 09/25/18 06:15 Sodium 139 Potassium 4.0 Chloride 113 H Carbon Dioxide 23 BUN 21 H Creatinine 1.30 Glucose 131 H Calcium 8.0 L Medications Administered Current Inpatient Medications Acetaminophen (Tylenol) 1,000 mg PO Q8 [facility] Stop: 10/24/18 13:59 Last Admin: 09/25/18 13:44 Dose: 1,000 mg Documented by: Albuterol (Ventolin Hfa) 1 puffs INH QID PRN PRN Reason: SHORT OF BREATH Amlodipine Besylate (Norvasc) 5 mg PO HS [facility] Stop: 10/24/18 20:59 Last Admin: 09/24/18 20:42 Dose: 5 mg Documented by: Aspirin (Ecotrin Ectab) 81 mg PO HS [facility] Stop: 10/24/18 20:59 Last Admin: 09/24/18 20:41 Dose: 81 mg Documented by: Bisacodyl (Dulcolax) 10 mg MI DAILY PRN PRN Reason: Constipation Stop: 10/24/18 10:12 Clopidogrel Bisulfate (Plavix) 75 mg PO QAM [facility] Stop: 10/25/18 08:59 Last Admin: 09/25/18 08:40 Dose: 75 mg Documented by: Colesevelam HCl (Colesevelam Hcl) 1 ea PO ONE [facility] Stop: 10/25/18 15:59 Cyanocobalamin (Vitamin B-12) 500 mcg PO DAILY [facility] Stop: 10/25/18 08:59 Last Admin: 09/25/18 08:40 Dose: 500 mcg Documented by: Dextrose (Dextrose 50%) 25 - 50 ml IV UD PRN; Protocol PRN Reason: Hypoglycemia Protocol Stop: 10/24/18 12:59 Diphenhydramine HCl (Benadryl Capsule) 25 mg PO Q8H PRN PRN Reason: Itching Stop: 10/24/18 10:12 Docusate Sodium (Colace) 100 mg PO BID [facility] Stop: 10/24/18 20:59 Last Admin: 09/25/18 08:40 Dose: 100 mg Documented by: Finasteride (Proscar) 5 mg PO QPM [facility] Stop: 10/24/18 20:59 Last Admin: 09/24/18 20:42 Dose: 5 mg Documented by: Glucagon (Glucagen) 1 mg IM UD PRN; Protocol PRN Reason: Hypoglycemia Protocol Stop: 10/24/18 12:59 Glucose (Glucose 40%) 15 - 30 gm PO UD PRN; Protocol PRN Reason: Hypoglycemia Protocol Stop: 10/24/18 12:59 Glucose (Dex4 Glucose) 4 - 8 tabs PO UD PRN; Protocol PRN Reason: Hypoglycemia Protocol Stop: 10/24/18 12:59 Hydromorphone HCl (Dilaudid) 0.5 mg IV Q4H PRN PRN Reason: Pain Stop: 10/08/18 10:12 Insulin Aspart (Novolog Flexpen) 0 units SC ACHS [facility]; Protocol Stop: 10/24/18 13:29 Last Admin: 09/25/18 12:59 Dose: 2 units Documented by: Magnesium Hydroxide (Milk Of Magnesia) 30 ml PO Q6H PRN PRN Reason: Constipation Stop: 10/24/18 10:12 Metformin HCl (Glucophage) 1,000 mg PO BIDM [facility] Stop: 10/26/18 07:59 Metoclopramide HCl (Reglan) 10 mg IV Q6H PRN PRN Reason: Nausea And Vomiting Stop: 10/24/18 10:12 Miscellaneous (Carbohydrates For Hypoglycemia) 15 - 30 gm PO UD PRN PRN Reason: Hypoglycemia Treatment Stop: 10/24/18 12:59 Miscellaneous Information (Consult Glycemic Management Pharmacy) 1 ea N/A UD PRN PRN Reason: Consult Stop: 10/24/18 11:48 Multivitamins (Multivitamin Tab) 1 tab PO QAM [facility] Stop: 10/25/18 08:59 Last Admin: 09/25/18 08:40 Dose: 1 tab Documented by: Naloxone HCl (Narcan) 0.1 mg IV Q5M PRN PRN Reason: Oversedation/Resp Depression Stop: 10/24/18 10:12 Fenofibrate ~ Non- Formulary Patient's Own Med 1 ea PO DAILY [facility] Stop: 10/25/18 16:14 Ondansetron HCl (Zofran) 4 mg IV Q6H PRN PRN Reason: Nausea And Vomiting Stop: 10/24/18 10:12 Last Admin: 09/25/18 12:29 Dose: 4 mg Documented by: Oxycodone HCl (Roxicodone Immediate Rel) 5 - 10 mg PO Q4H PRN PRN Reason: Pain Stop: 10/08/18 10:12 Last Admin: 09/25/18 08:40 Dose: 10 mg Documented by: Pantoprazole Sodium (Protonix) [facility] Protocol Stop: 10/25/18 08:59 Last Admin: 09/25/18 08:40 Dose: 40 mg Documented by: Sennosides (Senokot) 17.2 mg PO [facility] Stop: 10/24/18 20:59 Last Admin: 09/24/18 20:42 Dose: 17.2 mg Documented by: Tamsulosin HCl (Flomax) 0.4 mg PO [facility] Stop: 10/24/18 20:59 Last Admin: 09/24/18 20:42 Dose: 0.4 mg Documented by: Tramadol HCl (Ultram) 50 - 100 mg PO Q4H PRN PRN Reason: Pain Stop: 10/24/18 10:12 Last Admin: 09/25/18 13:03 Dose: 100 mg Documented by: Valsartan (Diovan) 160 mg PO DAILY [facility] Stop: 10/25/18 08:59 Last Admin: 09/25/18 08:40 Dose: 160 mg Documented by: Vitamin D (Vitamin D3) 1,000 units PO DAILY [facility] Stop: 10/25/18 08:59 Last Admin: 09/25/18 08:40 Dose: 1,000 units Documented by: (1) BPH (benign prostatic hyperplasia) Lower urinary tract symptom presence: unspecified whether lower urinary tract symptoms present Qualified Code(s): N40.0 - Benign prostatic hyperplasia without lower urinary tract symptoms (2) Sleep apnea Sleep apnea type: unspecified type Qualified Code(s): G47.30 - Sleep apnea, unspecified (3) Diabetes mellitus, type 2 Diabetes mellitus complication status: with unspecified complications Diabetes mellitus ferry terminal agent insulin use: without residential use Qualified Code(s): E11.8 - Type 2 diabetes mellitus with unspecified complications (4) CAD (coronary artery disease) Associated angina: without angina Coronary Disease-Associated Artery/Lesion type: [place] artery [place] vs. transplanted heart: [place] heart Qualified Code(s): I25.10 - Atherosclerotic heart disease of [place] coronary artery without angina pectoris (5) Hyperlipidemia Hyperlipidemia type: unspecified Qualified Code(s): E78.5 - Hyperlipidemia, unspecified (6) GERD (gastroesophageal reflux disease) Esophagitis presence: esophagitis presence not specified Qualified Code(s): K21.9 - Gastro-esophageal reflux disease without esophagitis (7) Hypertension Hypertension type: essential hypertension Qualified Code(s): I10 - Essential (primary) hypertension
[2018-09-25] MEDS: FENOFIBRATE PO SCH (17:51)
[2018-09-25] MEDS: SODIUM CHLORIDE 0.9% 1000ML 1,000 ML IV SCH (19:12)
[2018-09-25] MEDS: TAMSULOSIN HCL 0.4 MG CAP PO SCH (20:44)
[2018-09-25] MEDS: SENNA 8.6 MG TAB PO SCH (20:44)
[2018-09-25] MEDS: FINASTERIDE 5 MG TAB PO SCH (20:44)
[2018-09-25] MEDS: AMLODIPINE BESYLATE 5 MG TAB PO SCH (20:44)
[2018-09-25] MEDS: ASPIRIN 81 MG ECTAB PO SCH (20:44)
[2018-09-26] MEDS: ACETAMINOPHEN 500 MG TAB PO SCH (06:00)
[2018-09-26 06:12] LABS: Basophils # (auto) 0.02 K/uL (0-0.2); Basophils % (auto) 0.2 %; Eosinophils # (auto) 0.17 K/uL (0-0.5); Eosinophils % (auto) 2.1 %; Hemoglobin 10.8 g/dL (14.0-18.0); Immature Granulocytes # (auto) 0.02 K/uL (0.00-0.02); Immature Granulocytes % (auto) 0.2 %; Lymphocytes # (auto) 1.92 K/uL (1.2-3.4); Lymphocytes % (auto) 23.5 %; Mean Corpuscular Hgb Conc 32.7 g/dL (32-36); Mean Corpuscular Volume 89.4 fL (80-100); Mean Platelet Volume 9.5 fL (7.4-10.4); Monocytes # (auto) 1.07 K/uL (0.11-0.59); Monocytes % (auto) 13.1 %; Neutrophils # (auto) 4.96 K/uL (1.4-6.5); Neutrophils % (auto) 60.9 %; Platelet Count 198 K/uL (130-400); RDW Coefficient of Variation 14.8 % (11.5-14.5); RDW Standard Deviation 48.7 fL (36.4-46.3); Red Blood Count 3.69 M/uL (4.7-6.1); White Blood Count 8.16 K/uL (4.8-10.8)
[2018-09-26 06:35] LABS: BUN Creatinine Ratio 12.5 (10-20); Calcium 8.6 mg/dl (8.5-10.1); Est GFR (African American) 72.5; Est GFR (Non-African American) 62.6; Potassium 3.7 mmol/L (3.5-5.1)
[2018-09-26] MEDS: TRAMADOL HCL 50 MG TABLET PO PRN (07:54)
[2018-09-26] MEDS: MULTIVITAMIN TAB PO SCH (07:55)
[2018-09-26] MEDS: DOCUSATE SODIUM 100 MG CAP PO SCH (07:55)
[2018-09-26] MEDS: VALSARTAN 80 MG TAB PO SCH (07:55)
[2018-09-26] MEDS: CYANOCOBALAMIN 500 MCG TABLET (VITAMIN B-12) PO SCH (07:56)
[2018-09-26] MEDS: PANTOprazole 40 MG TAB PO SCH (07:56)
[2018-09-26] MEDS: FENOFIBRATE PO SCH (07:56)
[2018-09-26] MEDS: CHOLECALCIFEROL 1,000 UNITS TAB PO SCH (07:56)
[2018-09-26] MEDS: CLOPIDOGREL BISULFATE 75 MG TAB PO SCH (07:56)
[2018-09-26] MEDS: INSULIN ASPART 100 UNITS/ML 3 ML PEN SC SCH (08:00)
[2018-09-26] MEDS ORDERED: METFORMIN HCL 500 MG TAB PO SCH (08:00)
--- NOTE | 2018-09-26 09:25 | Orthopedic Progress Note ---
Date of Service September 26, 2018 Assessment & Plan (1) Status post total knee replacement, right: 73 yo male stable POD #2 s/p right TKA 1. Med management 2. DVT prophylaxis- ASA, SCDs 3. PT/OT 4. D/C planning- home w/ HH Subjective Pt resting in chair, pain controlled, denies complaints Physical Exam Vital Signs (Past 24 Hours): Last Vital Signs Temp 36.7 C 09/26/18 08:59 Pulse 63 09/26/18 08:59 Resp 16 09/26/18 08:59 BP 147/70 H 09/26/18 08:59 Pulse Ox 97 09/26/18 08:59 Physical Exam: Toes mobile, N/V/I, Silverlon dressing in place Results & Data Laboratory Results 09/26/18 09/26/18 09/26/18 Range/Units 06:45 05:50 05:50 WBC 8.16 (4.8-10.8) K/uL RBC 3.69 L (4.7-6.1) M/uL Hgb 10.8 L (14.0-18.0) g/dL Hct 33.0 L (42-52) % MCV 89.4 (80-100) fL MCH 29.3 (25-34) pg MCHC 32.7 (32-36) g/dL RDW Std Deviation 48.7 H (36.4-46.3) fL RDW Coeff of Maxx 14.8 H (11.5-14.5) % Plt Count 198 (130-400) K/uL MPV 9.5 (7.4-10.4) fL Immature Gran % (Auto) 0.2 % Neut % (Auto) 60.9 % Lymph % (Auto) 23.5 % [place] % (Auto) 13.1 % Eos % (Auto) 2.1 % Baso % (Auto) 0.2 % Immature Gran # (Auto) 0.02 (0.00-0.02) K/uL Neut # (Auto) 4.96 (1.4-6.5) K/uL Lymph # (Auto) 1.92 (1.2-3.4) K/uL [place] # (Auto) 1.07 H (0.11-0.59) K/uL Eos # (Auto) 0.17 (0-0.5) K/uL Baso # (Auto) 0.02 (0-0.2) K/uL Sodium 139 (136-145) mmol/L Potassium 3.7 (3.5-5.1) mmol/L Chloride 109 H (98-107) mmol/L Carbon Dioxide 24 (21-32) mmol/L Anion Gap 6.0 (3-11) BUN 14 (7-18) mg/dl Creatinine 1.14 (0.6-1.4) mg/dl Est Cr Clr Drug Dosing 72.0 ml/min Est GFR ( Amer) 72.5 Est GFR (Non-Af Amer) 62.6 BUN/Creatinine Ratio 12.5 (10-20) Glucose 137 H (70-99) mg/dl POC Glucose 166 H (70-99) Calcium 8.6 (8.5-10.1) mg/dl 09/25/18 09/25/18 09/25/18 Range/Units 20:47 17:19 12:05 WBC (4.8-10.8) K/uL RBC (4.7-6.1) M/uL Hgb (14.0-18.0) g/dL Hct (42-52) % MCV (80-100) fL MCH (25-34) pg MCHC (32-36) g/dL RDW Std Deviation (36.4-46.3) fL RDW Coeff of Maxx (11.5-14.5) % Plt Count (130-400) K/uL MPV (7.4-10.4) fL Immature Gran % (Auto) % Neut % (Auto) % Lymph % (Auto) % [place] % (Auto) % Eos % (Auto) % Baso % (Auto) % Immature Gran # (Auto) (0.00-0.02) K/uL Neut # (Auto) (1.4-6.5) K/uL Lymph # (Auto) (1.2-3.4) K/uL [place] # (Auto) (0.11-0.59) K/uL Eos # (Auto) (0-0.5) K/uL Baso # (Auto) (0-0.2) K/uL Sodium (136-145) mmol/L Potassium (3.5-5.1) mmol/L Chloride (98-107) mmol/L Carbon Dioxide (21-32) mmol/L Anion Gap (3-11) BUN (7-18) mg/dl Creatinine (0.6-1.4) mg/dl Est Cr Clr Drug Dosing ml/min Est GFR ( Amer) Est GFR (Non-Af Amer) BUN/Creatinine Ratio (10-20) Glucose (70-99) mg/dl POC Glucose 183 H 176 H 150 H (70-99) Calcium (8.5-10.1) mg/dl
--- NOTE | 2018-10-10 21:24 | Discharge Summary ---
HISTORY OF PRESENT ILLNESS: This is a 72-year-old male patient of Dr. Dale'juan manuel complaining of chronic right knee pain, longstanding, progressively getting worse. The patient failed conservative treatment and elected to proceed with a right total knee arthroplasty. PAST MEDICAL HISTORY: Hypertension, hypercholesterolemia, sleep apnea with CPAP, diabetes mellitus, rheumatoid arthritis, neck problems, low back problems, acid reflux, obesity and BPH. POSTOPERATIVE COURSE: The patient underwent a right total knee arthroplasty on 09/24/2018. He was followed closely with medical consultation, DVT prophylaxis in the form of aspirin, physical therapy and pain control. The patient did very well postoperatively and was discharged home on postoperative day #2. PHYSICAL EXAMINATION: On discharge, right knee Silverlon dressing was clean, dry and intact. There was no redness or drainage. He had no calf tenderness. Negative Homans sign. Toes and ankle were mobile. Neurologically and neurovascularly he was intact in his right lower extremity. DIAGNOSES: Status post right total knee arthroplasty with a history of hypertension, hypercholesterolemia, sleep apnea with CPAP, diabetes mellitus, rheumatoid arthritis, neck problems, low back problems, acid reflux, obesity and benign prostatic hypertrophy. PLAN: The patient was discharged home with home health services. He will continue his preadmission medications with the addition of pain medication and the continuation of aspirin for DVT prophylaxis. The patient will follow up as scheduled as an outpatient.
== END 2018-09-26 10:46 | disposition home health service (06) | DRG 470 ==
LOC: ASU 04:48 → 3E 10:01

== ENCOUNTER 2021-03-09 07:45 | Inpatient (IN) ==
--- NOTE | 2021-02-20 15:11 | Anesthesiology Consultation ---
Date of Service February 20, 2021 Assessment & Plan (1) Encounter for pre-operative examination: Chart Review Chart Review: Acceptable Risk for Surgery (pending cardio clearance and preop Covid testing results ) and Patient NOT seen in Pre Admission Testing Pending cardio clearance - Check BSG AM DOS *PT IS A DIFFICULT INTUBATION-- H/O FIBEROPTIC INTUBATION; PT CARRIES NOTE FROM YANNI RE: DIFFICULT INTUBATION (IN CHART UNDER 09/26/18 DATE)* Per [facility] anesthesia record for laser enucleation of prostate 11/20/2020 = " easy to hand mask ventilation with 9 cm away. First attempt with glidescope #3 revealed grade 1 view, but closed cords. Remainder of rocuronium administered and patient mask ventilated with volatile. Second attempt with glidescope revealed grade 1 view; open cords. 7.5 ETT passed easily." Per nursing assessment 02/20/2021, patient denies any recent travel. No known Covid infection in the past 90 days. Patient is vaccinated for Covid. No known Covid positive contacts or Covid related symptoms. Preop Covid testing scheduled 02/22/21= will await results. Patient seen by PCP 01/29/2021 = patient seen for preop evaluation. "Pt has revised cardiac index score of No Risk Factors- 0.4% (95% CI: 0.1-0.8) for the surgery scheduled... Per my evaluation, the patient has been medically optimized for anesthesia, pending cardiology clearance " F/u in six months Right TKA 09/24/18= Done under SAB. "Pt sitting for spinal. Multiple attempts at L3/4 without success using 24G sprotte. Single attempt at L2 with 24G sprotte without success. Attempt at L 2 with 22G Quincke successful. Multiple attempts made due to hx of difficult intubation. Pt tolerated well. History Surgery Operation Date: 02/26/21 09:35 Proposed Procedures p L4-L5 Decompression Fusion, Spinal Cord Monitoring - Gael Ibanez, Height/Weight Height: 5 ft 9 in Weight: 122.47 kg Allergies Allergy/AdvReac Type Severity Reaction Status Date / Time atorvastatin Allergy Intermediate Muscle Pain Verified 02/20/21 13:53 ezetimibe [From Zetia] Allergy Intermediate STOMACH Verified 02/20/21 13:53 PAIN fluvastatin Allergy Intermediate NECK PAIN Verified 02/20/21 13:53 niacin Allergy Intermediate HEART Verified 02/20/21 13:53 PALPITATIONS pravastatin Allergy Intermediate MUSCHLE Verified 02/20/21 13:53 ACHES Quinolones Allergy Intermediate SLEEP Verified 02/20/21 13:53 DISTURBANCE simvastatin Allergy Intermediate MUSCHLE Verified 02/20/21 13:53 ACHE Penicillins Allergy Mild Rash Verified 02/20/21 13:53 erythromycin base AdvReac Intermediate UPSET Verified 02/20/21 13:53 STOMACH KASSY Inhibitors AdvReac Mild Cough Verified 02/20/21 13:53 Medications Home Medications Medication Instructions Recorded Confirmed Last Taken aspirin 81 mg tablet,delayed 81 mg PO HS 08/19/18 02/20/21 09/23/18 18:30 release (Aspir-Low) colesevelam 625 mg tablet (WelChol) 3 tab PO BID 08/19/18 02/20/21 09/22/18 18:30 docusate sodium 100 mg tablet 100 mg PO BID 08/19/18 02/20/21 09/23/18 18:30 (Stool Softener) fenofibrate 160 mg tablet 160 mg PO QPM 08/19/18 02/20/21 09/23/18 18:30 glimepiride 2 mg tablet 2 mg PO QAM 08/19/18 02/20/21 09/23/18 08:00 metformin 1,000 mg tablet 1,000 mg PO BID 08/19/18 02/20/21 09/23/18 18:30 omeprazole 20 mg capsule,delayed 20 mg PO QAM 08/19/18 02/20/21 09/24/18 03:45 release Vitamin D3 1 tab PO QPM 09/24/18 02/20/21 09/16/18 08:00 valsartan 160 mg tablet 160 mg PO QAM 09/24/18 02/20/21 09/23/18 18:00 apixaban 5 mg tablet (Eliquis) 5 mg PO BID 02/20/21 02/20/21 Unknown celecoxib 200 mg capsule (Celebrex) 200 mg PO QAM 02/20/21 02/20/21 Unknown metoprolol succinate 25 mg 12.5 mg PO QAM 02/20/21 02/20/21 Unknown tablet,extended release 24 hr Past Medical History Medical History (Updated 02/20/21 @ 15:57 by Elma Pat PA-C) Anemia hx CAD (coronary artery disease) S/P PCI to LAD with BMS 12/2017 after failed stress test done to evaluate dizziness and SOB. Cancer PRE-CANCEROUS CELLS REMOVED ON SKIN Chronic back pain LOWER BACK Diabetes mellitus, type 2 GERD (gastroesophageal reflux disease) History of BPH History of COVID-19 08/2020; weakness, cough, body aches, sob, fever; resolved. Hyperlipidemia Hypertension Osteoarthritis Paroxysmal atrial fibrillation Sleep apnea does not tolerate CPAP Past Family History Family History Mother Family history of diabetes mellitus Brother Family hx of colon cancer Family history of diabetes mellitus Father Family hx of colon cancer Other No family history of adverse response to anesthesia Past Surgical History Surgical History Difficult airway for intubation PT NOTED HAS LETTER R/T DIFF. AIRWAY WITH LEFT TKA ([place]) 2012 H/O toe surgery History of appendectomy History of cardiac cath DECEMBER 2017 History of carpal tunnel release History of colonoscopy History of heart artery stent DECEMBER 2017-BMS to LAD History of prostatectomy History of tooth extraction History of total knee replacement BL Hx of prostate biopsy Social History Smoking Status: Never smoker Do You Dip or Chew Tobacco: No Hx Alcohol Use: No Alcohol type: beer and wine alcohol intake frequency: holidays/special occasions only Hx Substance Use: No substance use type: does not use Lab Results Anesthesia Preop Results Results Anesthesia Widget: WBC 6.34 K/uL (4.8-10.8) 01/24/21 Hgb 12.2 g/dL (14.0-18.0) L 01/24/21 Hct 38.3 % (42-52) L 01/24/21 Plt 240 K/uL (130-400) 01/24/21 Na 141 mmol/L (136-145) 01/24/21 K 4.3 mmol/L (3.5-5.1) 01/24/21 Cl 113 mmol/L (98-107) H 01/24/21 CO2 22 mmol/L (21-32) 01/24/21 BUN 16 mg/dl (7-18) 01/24/21 Creat 1.27 mg/dl (0.6-1.4) 01/24/21 Glucose Level 100 mg/dl (70-99) H 01/24/21 PT 10.3 Seconds (9.0-12.0) 01/24/21 INR 1.0 (0.9-1.1) 01/24/21 Urine Color Yellow 01/24/21 Urine Appearance Clear (Clear) 01/24/21 Urine pH 6.0 (4.5-7.5) 01/24/21 Urine Specific [place] 1.017 (1.000-1.030) 01/24/21 Urine Protein 2+ (Negative) H 01/24/21 Urine Glucose (UA) Negative (Negative) 01/24/21 Urine Ketones Trace (Negative) H 01/24/21 Urine Blood 3+ (Negative) H 01/24/21 Urine Nitrite Negative (Negative) 01/24/21 Urine Bilirubin Negative (Negative) 01/24/21 Urine Urobilinogen Negative (Negative) 01/24/21 Urine Leukocyte Esterase 2+ (Negative) H 01/24/21 Urine WBC (Auto) >30 /hpf (0-5) H 01/24/21 Urine RBC (Auto) >30 /hpf (0-4) H 01/24/21 Urine Hyaline Casts (Auto) 5-10 /lpf (0-5) H 01/24/21 Urine Epithelial Cells (Auto) 10-20 /lpf (0-5) H 01/24/21 Urine Bacteria (Auto) Negative (Negative) 01/24/21 Blood Type A Positive 01/24/21 Antibody Screen NEGATIVE 01/24/21 Lab Comments: Anemia chronic and stable- mildly improved from previous Testing Laboratory Results 01/24/21= URINE CULTURE: More than 3 types of organisms present, all moderate counts mixed probable skin isela. Electrocardiogram Date: 01/24/21 Sinus bradycardia with sinus arrhythmia at 59bpm. RBBB. Chest X-Ray Date: 01/24/21 Findings: + NAD and + cardiomegaly No definite pneumothorax is seen however evaluation of bilateral lung apices is limited due to overlying patient's chin. No pleural effusion. No large infiltrates or consolidative lesions are seen. Minimal prominence of pulmonary interstitium within bilateral lower lungs. Cardiomediastinal silhouette is mildly enlarged. No significant pulmonary vascular congestion.. Echocardiogram Date: 05/21/18 EF: 55% LV systolic function is normal. Top normal to mildly dilated left ventricular chamber size. LV wall thickness is mildly increased. Left ventricular wall motion is normal. Right ventricular cavity size is normal. Left atrium is moderately enlarged. Right atrial size is normal. There is aortic valve sclerosis without stenosis or significant regurgitation. No pericardial effusion noted. Stress Test Date: 09/05/20 Type: nuclear Probable normal pharmacologic Cardiolite stress test. The described findings most likely represent diaphragm attenuation (vertical longaxis from septum to lateral wall post stress images demonstrate mildly decreased counts involving the inferior wall. There is similar findings at rest. Horizontal longaxis from inferior to anterior wall post stress images demonstrate a small area of mildly decreased counts involving left ventricular apex. No significant change at rest. Short axis from apex to base post stress images demonstrate a small area of mildly decreased counts involving the inferior wall. This is similar at rest.). Cannot completely exclude ischemia. Normal pharmacologic stress EKG. Normal wall motion analysis. Normal post-rest ejection fraction. Cardiac Catheterization Date: 01/12/18 Intervention: + BMS placed and + PCI (distal LAD) The coronary arteries have diffuse minor irregularities with nonobstructive coronary artery disease and have significant 1 vessel disease. There was complete revascularization achieved. The percutaneous coronary intervention of the distal LAD was successful.
--- NOTE | 2021-03-06 10:54 | History & Physical Report ---
Date of Service March 06, 2021 Assessment & Plan (1) Neurogenic claudication due to lumbar spinal stenosis: Plan: Assessment lumbar spinal stenosis with spondylolisthesis L4-5 and progressive neurologic decline. Plan at this time patient is severe spinal stenosis and exhibits progressive weakness to the lower extremities with standing and ambulation. None of his presentation to avoid permanent neurologic deficit and recommending urgent lumbar decompression fusion L4-L5. History of Present Illness Chief Complaint: Back and bilateral leg pain Primary Care Provider: Radha Monroe DO This is a 75-year-old male presents with progressive back and bilateral leg pain. This has been going on for some time and has declined rapidly over the past several months. Describes pain with standing and walking and radiates to the buttocks posterior thighs. He can only stand for short period of time before he must sit due to leg weakness and pain. Is failed extensive course of nonoperative care. Allergies Allergy/AdvReac Type Severity Reaction Status Date / Time atorvastatin Allergy Intermediate Muscle Pain Verified 02/20/21 13:53 ezetimibe [From Zetia] Allergy Intermediate STOMACH Verified 02/20/21 13:53 PAIN fluvastatin Allergy Intermediate NECK PAIN Verified 02/20/21 13:53 niacin Allergy Intermediate HEART Verified 02/20/21 13:53 PALPITATIONS pravastatin Allergy Intermediate MUSCHLE Verified 02/20/21 13:53 ACHES Quinolones Allergy Intermediate SLEEP Verified 02/20/21 13:53 DISTURBANCE simvastatin Allergy Intermediate MUSCHLE Verified 02/20/21 13:53 ACHE Penicillins Allergy Mild Rash Verified 02/20/21 13:53 erythromycin base AdvReac Intermediate UPSET Verified 02/20/21 13:53 STOMACH KASSY Inhibitors AdvReac Mild Cough Verified 02/20/21 13:53 Home Medications Medication Instructions Recorded Confirmed Type aspirin 81 mg tablet,delayed 81 mg PO HS 08/19/18 02/20/21 History release (Aspir-Low) colesevelam 625 mg tablet (WelChol) 3 tab PO BID 08/19/18 02/20/21 History docusate sodium 100 mg tablet 100 mg PO BID 08/19/18 02/20/21 History (Stool Softener) fenofibrate 160 mg tablet 160 mg PO QPM 08/19/18 02/20/21 History glimepiride 2 mg tablet 2 mg PO QAM 08/19/18 02/20/21 History metformin 1,000 mg tablet 1,000 mg PO BID 08/19/18 02/20/21 History omeprazole 20 mg capsule,delayed 20 mg PO QAM 08/19/18 02/20/21 History release Vitamin D3 1 tab PO QPM 09/24/18 02/20/21 History valsartan 160 mg tablet 160 mg PO QAM 09/24/18 02/20/21 History apixaban 5 mg tablet (Eliquis) 5 mg PO BID 02/20/21 02/20/21 History celecoxib 200 mg capsule (Celebrex) 200 mg PO QAM 02/20/21 02/20/21 History metoprolol succinate 25 mg 12.5 mg PO QAM 02/20/21 02/20/21 History tablet,extended release 24 hr Past Med/Surg History Medical History (Updated 03/06/21 @ 10:53 by Gael Ibanez DO) Anemia hx CAD (coronary artery disease) S/P PCI to LAD with BMS 12/2017 after failed stress test done to evaluate dizziness and SOB. Cancer PRE-CANCEROUS CELLS REMOVED ON SKIN Chronic back pain LOWER BACK Diabetes mellitus, type 2 GERD (gastroesophageal reflux disease) History of BPH History of COVID-19 08/2020; weakness, cough, body aches, sob, fever; resolved. Hyperlipidemia Hypertension Osteoarthritis Paroxysmal atrial fibrillation Sleep apnea does not tolerate CPAP Surgical History Difficult airway for intubation PT NOTED HAS LETTER R/T DIFF. AIRWAY WITH LEFT TKA ([place]) 2012 H/O toe surgery History of appendectomy History of cardiac cath DECEMBER 2017 History of carpal tunnel release History of colonoscopy History of heart artery stent DECEMBER 2017-BMS to LAD History of prostatectomy History of tooth extraction History of total knee replacement BL Hx of prostate biopsy Family History Mother Family history of diabetes mellitus Brother Family hx of colon cancer Family history of diabetes mellitus Father Family hx of colon cancer Other No family history of adverse response to anesthesia Social History Smoking Status: Never smoker Second Hand Exposure: Yes (hx); Hx Alcohol Use: No Hx Substance Use: No Preferred Language: Maltese Communication Ability: Effective Music Instructor Required: No Beliefs That Will Affect Care: None Current Living Situation: Spouse Feels Safe at Home: Yes Assistive Devices: Denture - Upper Physical Exam Physical Exam: Patient is alert and oriented Heart regular rhythm Lungs clear to auscultation Exhibits a markedly stooped posture with standing deficits to bilateral dorsiflexion 4-/5.
[~2021-03-09 07:45] MED LIST: CLINDAMYCIN 600 MG/54 ML BAG IV SCH
[2021-03-09] MEDS ORDERED: CLINDAMYCIN 600 MG/54 ML D5W IV ONE (08:26)
[2021-03-09 08:27] LABS: Partial Thromboplastin Ratio 0.9; Partial Thromboplastin Time 24.6 Seconds (21.0-31.0)
[2021-03-09] MEDS: LR 15ML/HR IV SCH ×2 (08:29→08:44)
[2021-03-09] MEDS ORDERED: LABETALOL HCL IV 5 MG/ML 20ML IV PRN (09:36)
[2021-03-09] MEDS ORDERED: ATROPINE SULFATE 0.1 MG/ML 10ML SYR IV PRN (09:36)
[2021-03-09] MEDS ORDERED: ONDANSETRON INJ 2 MG/ML 2 ML VIAL IV PRN ×2 (09:36→14:13)
--- NOTE | 2021-03-09 09:51 | History & Physical Bridge Note ---
Date of Service March 09, 2021 History & Physical Bridge Note I have examined the patient, reviewed the History & Physical and in the interval since the performance of the History & Physical I have noted the following changes of clinical significance: no changes noted
[2021-03-09] MEDS ORDERED: LIDOCAINE 2% 2 ML VIAL/AMP(20MG/ML) INFIL ONE (09:53)
[2021-03-09] MEDS ORDERED: PROPOFOL IV EMULSION 10 MG/ML 20 ML VIAL IV ONE (09:53)
[2021-03-09] MEDS ORDERED: ROCURONIUM BROMIDE 10 MG/ML 5 ML VIAL IV ONE ×3 (09:53→12:10)
[2021-03-09] MEDS ORDERED: ONDANSETRON INJ 2 MG/ML 2 ML VIAL ONE (09:53)
[2021-03-09] MEDS ORDERED: DEXAMETHASONE SOD INJ 4 MG/ML VIAL ONE (09:53)
[2021-03-09] MEDS ORDERED: fentaNYL citrate 100 MCG/2 ML VIAL ONE ×2 (09:54→11:04)
[2021-03-09] MEDS ORDERED: MIDAZOLAM HCL 1 MG/ML 2ML VIAL ONE (09:54)
[2021-03-09] MEDS ORDERED: EPINEPHrine INJ 1 MG/ML AMP ONE (10:15)
[2021-03-09] MEDS ORDERED: BUPIVACAINE 0.5 % 5 MG/1 ML MPF 30ML VIAL ONE (10:15)
[2021-03-09] MEDS ORDERED: FLOSEAL HEMOSTATIC MATRIX 10ML TOP ONE (11:43)
[2021-03-09] MEDS ORDERED: ePHEDrine sulfate 50 MG/ML AMP ONE (12:06)
[2021-03-09] MEDS ORDERED: NEOSTIGMINE METHYLSULFATE 1 MG/ML 10ML VIAL ONE (12:10)
[2021-03-09] MEDS ORDERED: GLYCOPYRROLATE 0.2 MG/ML VIAL ONE (12:10)
[2021-03-09] MEDS ORDERED: SUGAMMADEX SODIUM 200 MG/2 ML VIAL IV ONE (12:15)
--- NOTE | 2021-03-09 12:22 | Operative Report ---
Post Operative Report Pre & Post Diagnosis Operation Date: 02/26/21 09:35 <No data on this case meets the specified criteria> Operation Date: 03/09/21 10:05 Pre-Op Diagnosis: Spinal Stenosis, Lumbar Region with Neurogenic Claudication Post-Op Diagnosis: Spinal Stenosis, Lumbar Region with Neurogenic Claudication I identified the patient and participated in the time-out.: Yes Procedure Operation Date: 02/26/21 09:35 <No data on this case meets the specified criteria> Operation Date: 03/09/21 10:05 Actual Procedures #1 lumbar decompression with bilateral medial facetectomies and foraminotomies L3-4 and L4-L5 per #2 posterior spinal fusion L4-5 #3 placement posterior instrumentation L4-5 per #4 interbody fusion L4-5 per #5 placement peek cage 14 x 26 mm at L4-5. #6 placement locally harvested morselized autograft in the posterior gutters. #7 placement of infuse collagen sponge, master graft in the posterior lateral gutters and I factor in the interbody space. Surgeon Gael Ibanez, DO Rollout Manager Angel Crow Estimated Blood Loss 100 Findings See Below The patient is 5 foot 9 weighing over 122 kg with a BMI in excess of 39. Patient's body habitus did contribute to significant technical difficulty requiring her deepest retractors longus instruments adding at least 50% increase to the operative time. Specimens None Indications This is a 75-year-old male who presents with marked decline in neurologic function here for surgical invention. Description of Procedure Patient was met with identified informed consent obtained. Patient was then taken to the operative suite underwent ablation placed in a prone position on a Derek table top of the Tim frame. All bony prominences well-padded eyes inspected to ensure no external pressure placed upon. This point the lumbar spine was prepped and draped in a sterile fashion. Sharp dissection with the assistance of Bovie cautery was performed down to and exposing the lamina and transverse processes of L4-L5. From caudal cephalad fashion complete laminectomy L4 partial laminectomy of L3 was performed including bilateral medial facetectomies and foraminotomies addressing severe spinal stenosis. Pedicle screws were then placed in L4-L5 bilaterally with assistance of fluoroscopy and the process andrea placed. Bilateral transforaminal portion right complete discectomy was performed endplates curetted to subcortically bone and a 14 x 26 mm peek cage filled with I factor tapped in position. The rods were then compressed locked in final position bilaterally. The transverse processes of L4-5 burred to subcortical bleeding bone. Infuse collagen sponge master graft lobe autograft was placed in the posterior gutters. 15 round SURI drain inserted. The incision was then closed with 1 Vicryl fascia 2-0 Vicryl subcutaneously and 4 Monocryl for final skin closure. Steri-Strip sterile dressings placed. Patient waken taken PACU stable condition. Please note spinal cord monitoring was utilized at the procedure no changes noted. Nicole lorenz was present at the entire surgery involved the patient positioning complex portions of the surgery and final skin closure. I attest to the content of the Intraoperative Record and any orders documented therein. Any exceptions are noted below.
--- NOTE | 2021-03-09 12:40 | Fluoroscopy Report ---
FL lumbar spine 2-3V CLINICAL INDICATION: MN ^L4-5 DFI. TECHNIQUE: 2 views were obtained with the C-arm in the OR with the above procedure. Total fluoroscopy time was 19.5 seconds. Total skin dose was 16.7 mGy. Comparison: None available at the time of this dictation. FINDINGS/IMPRESSION: Intraoperative images of lumbar spine orthopedic surgery were acquired. Please correlate with intraoperative fluoroscopy and operative report. ACT 112: Negative or not required by law. Electronically signed by: Mikey Guerra M.D. 03/09/2021 12:39 PM
[2021-03-09] MEDS ORDERED: HYDROmorphone INJ 1 MG/ML SYRINGE IV PRN ×2 (12:44→14:13)
--- NOTE | 2021-03-09 13:13 | Anesthesiology Progress Note ---
Date of Service March 09, 2021 Anesthesia Post Procedure Vital Signs Vital Signs: Temp Pulse Pulse Resp BP Pulse Ox 03/09/21 13:10 58 L 15 119/96 97 03/09/21 13:00 56 L 14 147/91 H 100 03/09/21 12:50 57 L 13 156/77 H 100 03/09/21 12:43 97.5 F L 60 13 163/75 H 99 03/09/21 08:37 99.1 F 53 L 20 159/82 H 96 Transfer of Care Handoff Completed per policy Notes Mental Status: alert / awake / arousable and participated in evaluation Patient Amnestic to Procedure: Yes Nausea / Vomiting: adequately controlled Pain: adequately controlled Airway Patency, RR, SpO2: stable & adequate BP & HR: stable & adequate Hydration State: stable & adequate Anesthetic Complications: no major complications apparent and Pt Satisfied with anesthetic care
[2021-03-09] MEDS: fentaNYL citrate 100 MCG/2 ML VIAL IV PRN ×3 (13:15→13:31)
[2021-03-09] MEDS ORDERED: ONDANSETRON 4 MG OD TAB PO PRN (14:13)
[2021-03-09] MEDS ORDERED: DO NOT ADMINISTER FLU VACCINE PRN (14:13)
[2021-03-09] MEDS ORDERED: bisacodyL 10 MG SUPP PR PRN (14:13)
[2021-03-09] MEDS ORDERED: hydrOXYzine HCl 25 MG TAB PO PRN (14:13)
[2021-03-09] MEDS ORDERED: MAGNESIUM HYDROXIDE SUSP 30 ML UDC PO PRN (14:13)
[2021-03-09] MEDS ORDERED: diphenhydrAMINE Capsule 25 MG CAP PO PRN (14:13)
[2021-03-09] MEDS ORDERED: HYDROmorphone INJ 0.5 MG/0.5 ML SYR IV PRN (14:13)
[2021-03-09] MEDS ORDERED: DO NOT ADMINISTER PNEUMOCOCCAL VACCINE PRN (14:13)
[2021-03-09] MEDS ORDERED: METOCLOPRAMIDE HCL INJ 5 MG/ML 2 ML VIAL IV PRN (14:13)
[2021-03-09] MEDS ORDERED: ALUMINUM/MAGNESIUM SUSP 30 ML UDC PO PRN (14:13)
[2021-03-09] MEDS ORDERED: PHARMACY GLYCEMIC MGMT CONSULT PRN (14:13)
[2021-03-09] MEDS ORDERED: NALOXONE HCL 0.4 MG/1 ML VIAL/CARP IV PRN (14:13)
[2021-03-09] MEDS ORDERED: ACETAMINOPHEN 1,000 MG/100 ML VIAL IV PRN (14:13)
[2021-03-09] MEDS ORDERED: LORazepam 0.5 MG TAB PO PRN (14:13)
[2021-03-09] MEDS ORDERED: FAMOTIDINE 20 MG TAB PO PRN (14:13)
[2021-03-09] MEDS ORDERED: SOD PHOSPHATE/SOD BIPHOSPHATE ENEMA 132 ML BTL PR PRN (14:13)
[2021-03-09] MEDS ORDERED: LORazepam 0.5 MG/1 ML VIAL IV PRN (14:13)
[2021-03-09] MEDS ORDERED: PROMETHAZINE HCL 12.5 MG in SODIUM CHLORIDE 0.9% 50 ML IV PRN (14:13)
[2021-03-09] MEDS ORDERED: ACETAMINOPHEN 500 MG TAB PO PRN (14:13)
[2021-03-09] MEDS ORDERED: traMADol HCL 50 MG TABLET PO PRN (14:13)
[2021-03-09] MEDS: SODIUM CHLORIDE 0.9% 1000ML 1,000 ML IV SCH ×2 (14:26→22:03)
--- NOTE | 2021-03-09 15:17 | Hospitalist Consultation ---
Date of Consultation March 09, 2021 Assessment & Plan (1) S/P spinal surgery: This is a 75yo M with a PMH of CAD (s/p BMS in 2018), HTN, HLD, DM II, CKD III, LOBO on cpap, BPH and other medical problems listed below who is POD #0 s/p lumbar decompression with bilateral medial facetectomies and foraminotomies L3-5 and posterior spinal fusion L4-[address] Ibanez. POD #0 s/p lumbar decompression with bilateral medial facetectomies and foraminotomies L3-5 and posterior spinal fusion L4-5 Per ortho for pain control, wound care, anticoagulation and activities Monitor H&H (pre-op hgb 12.2, EBL 100ml) Continue incentive spirometry, PT/OT when appropriate (2) Paroxysmal atrial fibrillation: Continue Toprol for rate control Holding Eliquis - will plan to resume per surgery's recommendation (3) Diabetes mellitus, type 2: A1c 7.4 in Jan 2021 Hold home agents SSI while in-patient Glycemic consult placed by primary service BSG AC HS (4) CAD (coronary artery disease): S/p BMS in 2018 Stable, no CP Follows with satellite installer Dr. Ortega in [place] Continue Toprol, Welchol, aspirin. Statin intolerant (5) Hypertension: BP 150/82 Optimize pain control Continue Toprol, valsartan, amlodipine PCP: Fer Dispo: Per primary service Patient seen in collaboration with Dr. Matute. Please see addendum. History of Present Illness Reason for Consultation: post op med mgmt Attending Physician: Gael Ibanez, DO History of Present Illness This is a 75yo M with a PMH of CAD (s/p BMS in 2018), paroxysmal A fib on Eliquis, HTN, HLD, DM II, CKD III, LOBO intolerant to cpap, BPH and other medical problems listed below who is POD #0 s/p lumbar decompression with bilateral medial facetectomies and foraminotomies L3-5 and posterior spinal fusion L4-5. Endorsing surgical site pain. No pain or paresthesias in BLE. Denies lightheadedness, visual changes, chest pain or SOB. No nausea, vomiting, abdominal pain, dysuria, diarrhea or constipation. Follows with Dr. Crespo at [facility]. Allergies Allergy/AdvReac Type Severity Reaction Status Date / Time atorvastatin Allergy Intermediate Muscle Pain Verified 03/09/21 08:19 ezetimibe [From Zetia] Allergy Intermediate STOMACH Verified 03/09/21 08:19 PAIN fluvastatin Allergy Intermediate NECK PAIN Verified 03/09/21 08:19 niacin Allergy Intermediate HEART Verified 03/09/21 08:19 PALPITATIONS pravastatin Allergy Intermediate MUSCHLE Verified 03/09/21 08:19 ACHES Quinolones Allergy Intermediate SLEEP Verified 03/09/21 08:19 DISTURBANCE simvastatin Allergy Intermediate MUSCHLE Verified 03/09/21 08:19 ACHE Penicillins Allergy Mild Rash Verified 03/09/21 08:19 erythromycin base AdvReac Intermediate UPSET Verified 03/09/21 08:19 STOMACH KASSY Inhibitors AdvReac Mild Cough Verified 03/09/21 08:19 Home Medications Medication Instructions Recorded Confirmed Type aspirin 81 mg tablet,delayed 81 mg PO HS 08/19/18 03/09/21 History release (Aspir-Low) colesevelam 625 mg tablet (WelChol) 3 tab PO BID 08/19/18 03/09/21 History docusate sodium 100 mg tablet 100 mg PO BID 08/19/18 03/09/21 History (Stool Softener) fenofibrate 160 mg tablet 160 mg PO QPM 08/19/18 03/09/21 History glimepiride 2 mg tablet 2 mg PO QAM 08/19/18 03/09/21 History metformin 1,000 mg tablet 1,000 mg PO BID 08/19/18 03/09/21 History omeprazole 20 mg capsule,delayed 20 mg PO QAM 08/19/18 03/09/21 History release Vitamin D3 1 tab PO QPM 09/24/18 03/09/21 History valsartan 160 mg tablet 160 mg PO QAM 09/24/18 03/09/21 History apixaban 5 mg tablet (Eliquis) 5 mg PO BID 02/20/21 03/09/21 History celecoxib 200 mg capsule (Celebrex) 200 mg PO QAM 02/20/21 03/09/21 History metoprolol succinate 25 mg 12.5 mg PO QAM 02/20/21 03/09/21 History tablet,extended release 24 hr cholecalciferol (vitamin D3) 50 50 mcg PO DAILY 03/09/21 03/09/21 History mcg (2,000 unit) tablet Patient History Medical History Anemia hx CAD (coronary artery disease) S/P PCI to LAD with BMS 12/2017 after failed stress test done to evaluate dizziness and SOB. Cancer PRE-CANCEROUS CELLS REMOVED ON SKIN Chronic back pain LOWER BACK Diabetes mellitus, type 2 GERD (gastroesophageal reflux disease) History of BPH History of COVID-19 08/2020; weakness, cough, body aches, sob, fever; resolved. Hyperlipidemia Hypertension Osteoarthritis Paroxysmal atrial fibrillation Sleep apnea does not tolerate CPAP Surgical History Difficult airway for intubation PT NOTED HAS LETTER R/T DIFF. AIRWAY WITH LEFT TKA ([facility]) 2012 H/O toe surgery History of appendectomy History of cardiac cath DECEMBER 2017 History of carpal tunnel release History of colonoscopy History of heart artery stent DECEMBER 2017-BMS to LAD History of prostatectomy History of tooth extraction History of total knee replacement BL Hx of prostate biopsy Status post total knee replacement, right Family History Mother Family history of diabetes mellitus Brother Family hx of colon cancer Family history of diabetes mellitus Father Family hx of colon cancer Other No family history of adverse response to anesthesia Social History Smoking Status: Never smoker Second Hand Exposure: Yes (hx); Do You Dip or Chew Tobacco: No; Hx Alcohol Use: No Hx Substance Use: No Preferred Language: Danish Communication Ability: Effective Stem Mounter Required: No Beliefs That Will Affect Care: None Current Living Situation: Spouse Feels Safe at Home: Yes Safety Concerns: Feels Safe At This Time Assistive Devices: Denture - Upper Review of Systems Review of Systems: At least ten systems reviewed and negative except as noted in the HPI. Physical Exam Physical Exam: General Appearance: WD/WN, vitals as above, NAD, lying in bed, pleasant, conversing easily, morbidly obese Head: normocephalic, atraumatic Eyes: normal inspection, PERRL, conjunctivae normal, anicteric sclerae ENT: external ear and nose normal, oropharynx normal Neck: normal visual inspection, trachea midline, no thyromegaly Respiratory: normal respiratory effort, lungs clear to auscultation, no wheeze, rales, rhonchi. No accessory muscle use Cardiovascular: regular rate, rhythm, no murmur, normal peripheral pulses, no BLE edema. Vessels: no JVD Abdomen/GI: normal bowel sounds, soft, nontender, no hepatosplenomegaly Extremities/Musculoskeletal: + Spinal dressing c/d/i. SURI drain visualized. No cyanosis or clubbing, extremities motor strength 5/5 Neurologic: PERRL, CN's II-XI intact bilaterally and moves all extremities Psychiatric: A+Ox3, euthymic affect Skin: no rashes, normal color, warm/dry Results & Data Results & Data ([facility]) Vital Signs (Past 12 Hours) Vital Signs Temp Pulse Pulse Resp BP Pulse Ox 03/09/21 15:14 37 C 62 16 150/82 H 94 03/09/21 14:43 37 C 60 16 153/66 H 95 03/09/21 14:15 37.4 C 62 16 161/71 H 98 03/09/21 13:55 61 18 146/65 H 95 03/09/21 13:40 36.5 C 60 15 174/79 H 95 03/09/21 13:30 36.5 C 68 19 173/79 H 94 03/09/21 13:20 60 12 162/95 H 95 03/09/21 13:10 58 L 15 119/96 97 03/09/21 13:00 56 L 14 147/91 H 100 03/09/21 12:50 57 L 13 156/77 H 100 03/09/21 12:43 36.4 C L 60 13 163/75 H 99 03/09/21 08:37 37.3 C 53 L 20 159/82 H 96 Diagnostic Findings Lumbar Spine X-Ray 03/09/21 10:05 FL lumbar spine 2-3V CLINICAL INDICATION: MN ^L4-5 DFI. TECHNIQUE: 2 views were obtained with the C-arm in the OR with the above procedure. Total fluoroscopy time was 19.5 seconds. Total skin dose was 16.7 mGy. Comparison: None available at the time of this dictation. FINDINGS/IMPRESSION: Intraoperative images of lumbar spine orthopedic surgery were acquired. Please correlate with intraoperative fluoroscopy and operative report. ACT 112: Negative or not required by law. Electronically signed by: Mikey Guerra M.D. 03/09/2021 12:39 PM (1) Diabetes mellitus, type 2 Diabetes mellitus complication status: with unspecified complications Diabetes mellitus penitentiary insulin use: without terminal computer operator use Qualified Code(s): E11.8 - Type 2 diabetes mellitus with unspecified complications (2) CAD (coronary artery disease) Associated angina: without angina Coronary Disease-Associated Artery/Lesion type: [place] artery [place] vs. transplanted heart: [place] heart Qualified Code(s): I25.10 - Atherosclerotic heart disease of [place] coronary artery without angina pectoris (3) Hypertension Hypertension type: essential hypertension Qualified Code(s): I10 - Essential (primary) hypertension
--- NOTE | 2021-03-09 15:18 | Pharmacy Report ---
Pharmacy Glycemic Short Note 2 - Date of Service March 09, 2021 - Glycemic Short BSG Results (Last 24 hours): 03/09/21 03/09/21 08:52 12:45 POC Glucose 178 H 192 H OUTPATIENT ANTIDIABETIC REGIMEN: * Metformin 1000 mg PO BID * Glimepiride 2 mg PO daily with breakfast ASSESSMENT: * 75 y/o patient admitted for lumbar decompression and spinal fusion surgery. Patient with history of Type 2 diabetes managed at home only on oral Metformin and Glimepiride. * Holding oral anti-diabetic meds for now and started on basal + bolus insulin regimen. Will titrate based on BSG trends. * Pt received 4 mg IV Decadron in OR today x1. Basal NPH dose scale ordered with dinner today based on BSG to treat possible steroid induced hyperglycemia. * Ongoing IV Decadron 6 mg daily ordered for tomorrow. Will re-assess basal n eeds in the morning and re-order NPH to be given with the Decadron. * Novolog parameters also ordered based on wt and stress of 2. PLAN FOR INPATIENT GLYCEMIC CONTROL: * Hold outpatient oral diabetes medications * Basal insulin * NPH 0-15 units SQ x1 with dinner * Bolus insulin * NovoLog per scale ACHS or Q6hrs while NPO * Goal Range: Low 110 mg/dL - High 140 mg/dL * Correction Factor: 20 mg/dL/unit * Nutritional / Prandial insulin per carb ratio of 1 unit per 6 grams CHO consumed PLAN FOR DISCHARGE: * TBD
[2021-03-09] MEDS ORDERED: NovoLIN-N (NPH) PER UNIT CHARGE SQ ONE (16:30)
[2021-03-09] MEDS: CLINDAMYCIN 600 MG in DEXTROSE 5% 50 ML IV SCH (18:14)
[2021-03-09] MEDS: INSULIN ASPART 100 UNITS/ML 3 ML PEN SC SCH ×2 (18:17→20:41)
[2021-03-09] MEDS: oxyCODONE HCL IR 5 MG TAB (IMMEDIATE RELEASE) PO PRN ×2 (18:23→22:35)
[2021-03-09] MEDS: DOCUSATE SODIUM/SENNA 50/8.6MG TAB PO SCH (20:35)
[2021-03-09] MEDS: DOCUSATE SODIUM 100 MG CAP PO SCH (20:36)
[2021-03-09] MEDS: CHOLECALCIFEROL 1,000 UNITS 25 MCG TAB PO SCH (20:36)
[2021-03-09] MEDS: FENOFIBRATE NANOCRYSTALLIZED 145 MG TABLET PO SCH (20:36)
[2021-03-09] MEDS: ASPIRIN 81 MG ECTAB PO SCH (20:37)
[2021-03-10] MEDS: INSULIN ASPART 100 UNITS/ML 3 ML PEN SC SCH ×6 (01:19→21:03)
[2021-03-10] MEDS: CLINDAMYCIN 600 MG in DEXTROSE 5% 50 ML IV SCH (02:11)
[2021-03-10] MEDS: POLYETHYLENE (MIRALAX) 17 GM PACK PO SCH ×3 (04:45→17:54)
[2021-03-10] MEDS: oxyCODONE HCL IR 5 MG TAB (IMMEDIATE RELEASE) PO PRN ×3 (04:59→15:50)
--- NOTE | 2021-03-10 06:25 | Orthopedic Progress Note ---
Date of Service March 10, 2021 Assessment & Plan (1) Neurogenic claudication due to lumbar spinal stenosis: Plan: Patient is doing well postop day #1. We will continue GI DVT prophylaxis and pain control measures. He will be seen by physical therapy today for ambulation and gait training. We will see how he does throughout the day and see him early tomorrow. Likely discharged home on Friday. Admission and Anticipated Discharge Date Admission Date: March 09, 2021 Subjective Patient was seen bedside in room 5. He is doing well this morning. He has some soreness in his back but no pain going down the legs. He had a restful night. His pain is well controlled. He is not nauseous. He has been able to urinate. He denies any other numbness, tingling, or paresthesias. Physical Exam Physical Exam: On exam he is alert and oriented. His dressing is clean dry and intact. His SURI drain is intact and holding suction. He has had 50 cc out on the shift and 45 on the last. His abdomen soft nontender his calves are supple nontender he has good strength in both lower extremities. Results & Data ([facility]) Vital Signs (Past 12 Hours) Vital Signs Temp Pulse Resp BP Pulse Ox 03/10/21 03:41 37 C 64 16 171/78 H 96 03/09/21 22:52 37.2 C 60 16 190/81 H 97 03/09/21 19:39 37.1 C 61 16 180/74 H 97
[2021-03-10 06:33] LABS: Basophils # (auto) 0.02 K/uL (0-0.2); Basophils % (auto) 0.2 %; Eosinophils # (auto) 0.04 K/uL (0-0.5); Eosinophils % (auto) 0.4 %; Hematocrit (blood only) 36.3 % (42-52); Hemoglobin 11.6 g/dL (14.0-18.0); Immature Granulocytes # (auto) 0.02 K/uL (0.00-0.02); Immature Granulocytes % (auto) 0.2 %; Lymphocytes # (auto) 1.13 K/uL (1.2-3.4); Lymphocytes % (auto) 10.8 %; Mean Corpuscular Volume 84.6 fL (80-100); Mean Platelet Volume 10.1 fL (7.4-10.4); Monocytes # (auto) 1.21 K/uL (0.11-0.59); Monocytes % (auto) 11.5 %; Neutrophils # (auto) 8.06 K/uL (1.4-6.5); Neutrophils % (auto) 76.9 %; Platelet Count 208 K/uL (130-400); RDW Standard Deviation 46.4 fL (36.4-46.3); Red Blood Count 4.29 M/uL (4.7-6.1); White Blood Count 10.48 K/uL (4.8-10.8)
[2021-03-10 07:06] LABS: BUN Creatinine Ratio 12.7 (10-20); Calcium 8.5 mg/dl (8.5-10.1); Creatinine Clr Calc Pharmacy 60.1 ml/min; Est GFR (African American) 59.3 ml/min; Est GFR (Non-African American) 51.2 ml/min
[2021-03-10] MEDS: PANTOprazole 40 MG TAB PO SCH (08:41)
[2021-03-10] MEDS: amLODIPine BESYLATE 5 MG TAB PO SCH (08:41)
[2021-03-10] MEDS: CHOLECALCIFEROL 1,000 UNITS 25 MCG TAB PO SCH ×2 (08:41→19:40)
[2021-03-10] MEDS: DOCUSATE SODIUM 100 MG CAP PO SCH ×2 (08:42→19:41)
[2021-03-10] MEDS: dexAMETHasone 6 MG in SYRINGE 0 ML IV SCH (08:42)
[2021-03-10] MEDS: VALSARTAN 80 MG TAB PO SCH (08:42)
[2021-03-10] MEDS: METOPROLOL SUCC 25MG EXT REL TAB PO SCH (08:42)
[2021-03-10] MEDS ORDERED: INSULIN GLARGINE SOLOSTAR 100 UNITS/ML 3 ML PEN SC SCH (09:00)
[2021-03-10] MEDS ORDERED: GLIMEPIRIDE 2 MG TAB PO SCH (09:00)
[2021-03-10 10:03] LABS: Estimated Average Glucose 166 mg/dl; Hemoglobin A1C 7.4 % (4.5-5.6)
[2021-03-10] MEDS: DOCUSATE SODIUM/SENNA 50/8.6MG TAB PO SCH (19:40)
[2021-03-10] MEDS: ASPIRIN 81 MG ECTAB PO SCH (19:40)
[2021-03-10] MEDS: FENOFIBRATE NANOCRYSTALLIZED 145 MG TABLET PO SCH (19:40)
[2021-03-10] MEDS: INSULIN GLARGINE SOLOSTAR 100 UNITS/ML 3 ML PEN SC SCH (21:03)
--- NOTE | 2021-03-10 23:58 | Hospitalist Progress Note ---
Date of Service March 10, 2021 Assessment & Plan (1) S/P spinal surgery: Plan: This is a 75yo M with a PMH of CAD (s/p BMS in 2018), HTN, HLD, DM II, CKD III, LOBO on cpap, BPH and other medical problems listed below who is POD #0 s/p lumbar decompression with bilateral medial facetectomies and foraminotomies L3-5 and posterior spinal fusion L4-[address] Ibanez. s/p day#1 lumbar decompression with bilateral medial facetectomies and foraminotomies L3-5 and posterior spinal fusion L4-[address] Ibanez No post op complication Continue pain control Incentive spirometry Continue monitor Hgb PT/OT eval Fall precaution (2) Paroxysmal atrial fibrillation: Plan: Continue Toprol for rate control Eliquis on hold- will need to resume once bleeding stable as per ortho (3) Diabetes mellitus, type 2: Plan: A1c 7.4 in Jan 2021 Hold home agents SSI while in-patient Glycemic consult placed by primary service BSG AC HS (4) CAD (coronary artery disease): Plan: S/p BMS in 2018 Stable, no CP Follows with airline manager Dr. Ortega in [place] Continue Toprol, Welchol, aspirin. Statin intolerant (5) Hypertension: Plan: BP 150/82 Optimize pain control Continue Toprol, valsartan, amlodipine PCP: Fer Dispo: Per primary service Admission and Anticipated Discharge Date Admission Date: March 09, 2021 Subjective Pt was seen and examined for postop follow Lying in bed with no distress Pt said that he feels ok He said that pain is tolerable He walked with therapy today Denies any chest pain, palpitation, dizziness and SOB Review of Systems Review of Systems: All systems reviewed & are unremarkable except as noted in Subjective Physical Exam Physical Exam: General- No acute distress Head- atraumatic Eyes- PERRL, EOMI, ENT- oropharynx clear Neck- supple, no JVD Lungs- clear to auscultation Heart- regular rhythm; no murmur Abdomen- normal bowel sounds, soft, nontender Extremities- no calf tenderness Neuro- alert, oriented x 3; PERRL, EOMI; no facial palsy; no dysarthria Skin- warm & dry Results & Data Results & Data ([facility]) Vital Signs (Past 12 Hours) Vital Signs Temp Pulse Resp BP Pulse Ox 03/10/21 23:18 37.4 C 60 16 176/73 H 95 03/10/21 15:42 37.6 C H 58 L 16 161/64 H 96 (1) Diabetes mellitus, type 2 Diabetes mellitus complication status: with unspecified complications Diabetes mellitus prison insulin use: without prison use Qualified Cod e(s): E11.8 - Type 2 diabetes mellitus with unspecified complications (2) CAD (coronary artery disease) Associated angina: without angina Coronary Disease-Associated Artery/Lesion type: [place] artery [place] vs. transplanted heart: [place] heart Qualified Code(s): I25.10 - Atherosclerotic heart disease of [place] coronary artery without angina pectoris (3) Hypertension Hypertension type: essential hypertension Qualified Code(s): I10 - Essential (primary) hypertension
[2021-03-11] MEDS: POLYETHYLENE (MIRALAX) 17 GM PACK PO SCH ×5 (00:11→23:48)
--- NOTE | 2021-03-11 06:39 | Orthopedic Progress Note ---
Date of Service March 11, 2021 Assessment & Plan (1) Neurogenic claudication due to lumbar spinal stenosis: Plan: Patient is doing well postop day #2. We will continue with GI DVT prophylaxis and pain control measures. He is going to ambulate with physical therapy and likely be able to discharge him to home on Friday. Admission and Anticipated Discharge Date Admission Date: March 09, 2021 Subjective Patient seen bedside room 305. He is postop day #2 status post lumbar decompression and fusion at L4-5 he did well yesterday he walked with physical therapy. His pain is well controlled. He denies any other numbness, tingling, or paresthesias. Physical Exam Physical Exam: On exam he is alert and oriented. He moves all extremities to gravity. He is resting comfortably in bed. His dressings clean dry intact his abdomen soft nontender his calves are supple nontender. SURI drain is in place and holding suction. And his placed out 60 cc overnight and 80 during the day. Results & Data ([facility]) Vital Signs (Past 12 Hours) Vital Signs Temp Pulse Resp BP Pulse Ox 03/10/21 23:18 37.4 C 60 16 176/73 H 95
[2021-03-11] MEDS: INSULIN GLARGINE SOLOSTAR 100 UNITS/ML 3 ML PEN SC SCH ×2 (07:52→20:52)
[2021-03-11] MEDS: INSULIN ASPART 100 UNITS/ML 3 ML PEN SC SCH ×4 (07:52→20:53)
[2021-03-11] MEDS: DOCUSATE SODIUM 100 MG CAP PO SCH ×2 (07:54→20:50)
[2021-03-11] MEDS: VALSARTAN 80 MG TAB PO SCH (07:55)
[2021-03-11] MEDS: CHOLECALCIFEROL 1,000 UNITS 25 MCG TAB PO SCH ×2 (07:55→20:50)
[2021-03-11] MEDS: PANTOprazole 40 MG TAB PO SCH (07:56)
[2021-03-11] MEDS: METOPROLOL SUCC 25MG EXT REL TAB PO SCH (07:56)
[2021-03-11] MEDS: amLODIPine BESYLATE 5 MG TAB PO SCH (07:56)
[2021-03-11] MEDS: dexAMETHasone 6 MG in SYRINGE 0 ML IV SCH (07:57)
[2021-03-11] MEDS: oxyCODONE HCL IR 5 MG TAB (IMMEDIATE RELEASE) PO PRN ×3 (09:46→23:54)
[2021-03-11] MEDS: metFORMIN HCL 500 MG TAB PO SCH ×2 (09:46→18:16)
[2021-03-11] MEDS ORDERED: NovoLIN-N (NPH) PER UNIT CHARGE SQ ONE (12:15)
[2021-03-11] MEDS: SODIUM CHLORIDE 0.9% 1000ML 1,000 ML IV SCH (13:43)
--- NOTE | 2021-03-11 15:38 | Pharmacy Report ---
Pharmacy Glycemic Short Note 2 - Date of Service March 11, 2021 - Glycemic Short BSG Results (Last 24 hours): 03/10/21 03/10/21 03/11/21 17:01 20:53 06:41 POC Glucose 267 H 231 H 166 H 03/11/21 12:02 POC Glucose 268 H OUTPATIENT ANTIDIABETIC REGIMEN: * Metformin 1000 mg PO BID * Glimepiride 2 mg PO daily with breakfast ASSESSMENT: 03/11: * POD # 2 s/p lumbar decompression and spinal fusion surgery * Patient appeared to do well on POD #0 despite administration of DXM therefore Lantus + Novolog was continued on 03/10 (no NPH). Patient then developed steroid induced hyperglycemia, therefore NPH was added to regimen. * Will also tighten carb coverage * 75 y/o patient admitted for lumbar decompression and spinal fusion surgery. Patient with history of Type 2 diabetes managed at home only on oral Metformin and Glimepiride. * Holding oral anti-diabetic meds for now and started on basal + bolus insulin regimen. Will titrate based on BSG trends. * Pt received 4 mg IV Decadron in OR today x1. Basal NPH dose scale ordered with dinner today based on BSG to treat possible steroid induced hyperglycemia. * Ongoing IV Decadron 6 mg daily ordered for tomorrow. Will re-assess basal needs in the morning and re-order NPH to be given with the Decadron. * Novolog parameters also ordered based on wt and stress of 2. PLAN FOR INPATIENT GLYCEMIC CONTROL: * Hold outpatient oral diabetes medications * Basal insulin * NPH 20 units SQ x1 today, reassess dose on 03/12 * Lantus per scale (10-15 units) BID * Bolus insulin * NovoLog per scale ACHS or Q6hrs while NPO * Goal Range: Low 110 mg/dL - High 140 mg/dL * Correction Factor: 15 mg/dL/unit * Nutritional / Prandial insulin per carb ratio of 1 unit per 4 grams CHO consumed
--- NOTE | 2021-03-11 20:36 | Hospitalist Progress Note ---
Date of Service March 11, 2021 Assessment & Plan (1) S/P spinal surgery: Plan: This is a 75yo M with a PMH of CAD (s/p BMS in 2018), HTN, HLD, DM II, CKD III, LOBO on cpap, BPH and other medical problems listed below who is POD #0 s/p lumbar decompression with bilateral medial facetectomies and foraminotomies L3-5 and posterior spinal fusion L4-[address] Ibanez. s/p day#2 lumbar decompression with bilateral medial facetectomies and foraminotomies L3-5 and posterior spinal fusion L4-[address] Ibanez No post op complication Continue pain control Incentive spirometry Continue monitor Hgb PT/OT eval Fall precaution (2) Paroxysmal atrial fibrillation: Plan: Continue Toprol for rate control Eliquis on hold, will discuss with ortho about to resume Eliquis in AM if bleedi ng stable (3) Diabetes mellitus, type 2: Plan: A1c 7.4 in Jan 2021 Hold home agents SSI while in-patient Glycemic consult placed by primary service BSG AC HS (4) CAD (coronary artery disease): Plan: S/p BMS in 2018 Stable, no CP Follows with mail handler Dr. Ortega in [place] Continue Toprol, Welchol, aspirin. Statin intolerant (5) Hypertension: Plan: BP 150/82 Optimize pain control Continue Toprol, valsartan, amlodipine PCP: Fer Dispo: Per primary service Admission and Anticipated Discharge Date Admission Date: March 09, 2021 Subjective Pt was seen and examined for postop follow Lying in bed with no acute distress He said that pain is tolerable He walked with therapy today Denies any chest pain, palpitation, dizziness and SOB Review of Systems Review of Systems: All systems reviewed & are unremarkable except as noted in Subjective Physical Exam Physical Exam: General- No acute distress Head- atraumatic Eyes- PERRL, EOMI, ENT- oropharynx clear Neck- supple, no JVD Lungs- clear to auscultation Heart- regular rhythm; no murmur Abdomen- normal bowel sounds, soft, nontender Extremities- no calf tenderness Neuro- alert, oriented x 3; PERRL, EOMI; no facial palsy; no dysarthria Skin- warm & dry Results & Data Results & Data ([facility]) Vital Signs (Past 12 Hours) Vital Signs Temp Pulse Resp BP Pulse Ox 03/11/21 15:46 37.3 C 60 16 162/65 H 98 (1) Diabetes mellitus, type 2 Diabetes mellitus group home insulin use: without group home use Diabetes mellitus complication status: with unspecified complications Qualified Code(s): E11.8 - Type 2 diabetes mellitus with unspecified complications (2) CAD (coronary artery disease) Coronary Disease-Associated Artery/Lesion type: [place] artery [place] vs. transplanted heart: [place] heart Associated angina: without angina Qualified Code(s): I25.10 - Atherosclerotic heart disease of [place] coronary artery without angina pectoris (3) Hypertension Hypertension type: essential hypertension Qualified Code(s): I10 - Essential (primary) hypertension
[2021-03-11] MEDS: DOCUSATE SODIUM/SENNA 50/8.6MG TAB PO SCH (20:50)
[2021-03-11] MEDS: ASPIRIN 81 MG ECTAB PO SCH (20:50)
[2021-03-11] MEDS: FENOFIBRATE NANOCRYSTALLIZED 145 MG TABLET PO SCH (20:50)
[2021-03-12] MEDS ORDERED: INSULIN ASPART 100 UNITS/ML 3 ML PEN SC SCH
[2021-03-12] MEDS: POLYETHYLENE (MIRALAX) 17 GM PACK PO SCH ×2 (05:32→12:46)
[2021-03-12 06:13] LABS: Hematocrit (blood only) 33.3 % (42-52); Hemoglobin 10.6 g/dL (14.0-18.0); Mean Corpuscular Hgb Conc 31.8 g/dL (32-36); Mean Corpuscular Volume 84.7 fL (80-100); Mean Platelet Volume 9.7 fL (7.4-10.4); Platelet Count 196 K/uL (130-400); RDW Standard Deviation 46.8 fL (36.4-46.3); Red Blood Count 3.93 M/uL (4.7-6.1); White Blood Count 9.34 K/uL (4.8-10.8)
[2021-03-12] MEDS: dexAMETHasone 6 MG in SYRINGE 0 ML IV SCH (07:35)
[2021-03-12] MEDS: DOCUSATE SODIUM 100 MG CAP PO SCH (07:35)
[2021-03-12] MEDS: METOPROLOL SUCC 25MG EXT REL TAB PO SCH (07:35)
[2021-03-12] MEDS: metFORMIN HCL 500 MG TAB PO SCH (07:36)
[2021-03-12] MEDS: amLODIPine BESYLATE 5 MG TAB PO SCH (07:36)
[2021-03-12] MEDS: CHOLECALCIFEROL 1,000 UNITS 25 MCG TAB PO SCH (07:36)
[2021-03-12] MEDS: PANTOprazole 40 MG TAB PO SCH (07:36)
[2021-03-12] MEDS: VALSARTAN 80 MG TAB PO SCH (07:36)
[2021-03-12] MEDS: INSULIN GLARGINE SOLOSTAR 100 UNITS/ML 3 ML PEN SC SCH (07:38)
[2021-03-12] MEDS: INSULIN ASPART 100 UNITS/ML 3 ML PEN SC SCH ×2 (07:39→12:45)
[2021-03-12] MEDS ORDERED: NovoLIN-N (NPH) PER UNIT CHARGE SQ ONE (09:00)
--- NOTE | 2021-03-12 11:20 | Discharge Summary ---
Date of Service March 12, 2021 Admission HPI Per Admitting Provider This is a 75-year-old male presents with progressive back and bilateral leg pain. This has been going on for some time and has declined rapidly over the past several months. Describes pain with standing and walking and radiates to the buttocks posterior thighs. He can only stand for short period of time before he must sit due to leg weakness and pain. Is failed extensive course of nonoperative care. Principal Diagnosis Lumbar spinal stenosis with neurogenic claudication Discharge Data Allergies Allergy/AdvReac Type Severity Reaction Status Date / Time atorvastatin Allergy Intermediate Muscle Pain Verified 03/09/21 08:19 ezetimibe [From Zetia] Allergy Intermediate STOMACH Verified 03/09/21 08:19 PAIN fluvastatin Allergy Intermediate NECK PAIN Verified 03/09/21 08:19 niacin Allergy Intermediate HEART Verified 03/09/21 08:19 PALPITATIONS pravastatin Allergy Intermediate MUSCHLE Verified 03/09/21 08:19 ACHES Quinolones Allergy Intermediate SLEEP Verified 03/09/21 08:19 DISTURBANCE simvastatin Allergy Intermediate MUSCHLE Verified 03/09/21 08:19 ACHE Penicillins Allergy Mild Rash Verified 03/09/21 08:19 erythromycin base AdvReac Intermediate UPSET Verified 03/09/21 08:19 STOMACH KASSY Inhibitors AdvReac Mild Cough Verified 03/09/21 08:19 Consultations 03/09/21 14:13 Consult Hospitalist Routine Procedures Performed Operation Date: 02/26/21 09:35 <No data on this case meets the specified criteria> Operation Date: 03/09/21 10:05 Actual Procedures p L4-L5 Decompression and Fusion, Spinal Cord Monitoring(Not Applicable) - Gael Ibanez DO Ordered Studies 03/09/21 10:05 FL lumbar spine 2-3V Routine Hospital Course (1) Neurogenic claudication due to lumbar spinal stenosis: Patient with lumbar decompression fusion trial as well as taken orthopedic for postoperative. Postop day 1 is up ambulating Ronan postop day #2 on postop day #3 SURI drain decreased probably. Excellent strength testing. Pain well controlled. Subsequent discharge home. Discharge orders instructions from the chart for further review. Total Time Total Time Spent Total Time Spent (In Minutes): 20 minutes Discharge Plan Discharge Items Patient Disposition: Home - Self-Care Reason For Visit: Spinal Stenosis, Lumbar Region with Neurogenic Discharge Diagnosis: Lumbar spinal stenosis Activity: As commented below Non-emergency contact: Primary Care Provider Call non-emergency contact if: you have any medication questions Follow-up/Referrals: Radha Monroe DO [Primary Care Provider] - Diet: Regular Addtl Attending Provider Instructions: ACTIVITY RECOMMENDATIONS: SELF CARE INSTRUCTIONS AFTER THORACIC/LUMBAR FUSIONS 1. You may walk to your tolerance. It is good exercise for your legs and back. Expect some back and intermittent leg aches and pains. 2. You may perform "counter-top" level activities (make a sandwich, gage with a project, etc.). 3. No bending or lifting of more than 10 pounds or back twisting of any nature (roll like a log when turning in bed). 4. You may ride in a car for 20-30 minutes at a time. No driving until after your first visit with your doctor. 5. Frequent changes of position and restricting sitting to 30 minutes at a time will help limit the amount of back spasms and stiffness you may experience. 6. You may discontinue the use of ambulatory aids (cane, crutches, etc.) once your strength and confidence allow. 7. You may mask inspector the shower and let water strike your incision when you arrive home at least once daily. Do not take a tub bath, sit in a hot tub or go into a swimming pool until after your first recheck in the office. SPECIAL CARE INSTRUCTIONS: VERY IMPORTANT TO READ AND REVIEW A. Your surgical incision has been closed with a cosmetic suture under the skin that will dissolve in about 6 weeks. In 14 days, you can use a pair of clean scissors and cut the suture that is left outside of the skin at the ends of your incision. 1. The small skin tapes can be removed 7 days after surgery if they have not fallen off by that point. 2. You may keep the wound open to air as much as possible to promote healing after post-op day number 5 unless told otherwise by your doctor. 3. If you think the wound looks like it is becoming infected (redness or worsening drainage) and/or you are experiencing fever, chill or worsening back pain and muscle spasms, contact the office so that we may evaluate you as soon as possible. B. Complications are uncommon, but please contact us if you have any signs or symptoms of: 1. wound infection (fever higher than 102.5 degrees F, redness, separation of wound, drainage, or increasing pain from the incision) 2. blood clots in legs (pain, swelling, redness and warmth in legs) 3. urinary tract infection (fever higher than 102.5 degrees F, burning upon urination or increased frequency of urination) 4. nerve problems (inability to walk on your toes or heels, numbness, loss of bowel or bladder control) 5. any other symptoms that concern you C. Please call the office at if you have any concerns or que stions about your operation or recovery. D. No smoking! Smoking drastically decreases the chance of a solid fusion. E. Do not take any anti-inflammatory medications (Indocin, Advil, Motrin, Aspirin, Naprosyn, etc.) as these may inhibit the chance of a solid fusion. Tylenol is okay to take for pain. MANAGING PAIN AFTER SPINAL SURGERY 1. Narcotic medication is intended for short-term use and will be provided for surgical pain. Surgical pain usually lasts for a period of 4-6 weeks. Narcotic medication includes Percocet, Vicodin, Darvocet, Tylenol #3 or Lortab. 2. Longer-term pain is more appropriately treated with non-narcotic medication such as Tylenol ES. 3. Muscle spasm is not appropriately treated with narcotics. Muscle relaxers such as Soma, Flexeril or Skelaxin can be used along with Tylenol ES. 4. Remember that we all live with some "aches and pains". This is not unusual or uncommon after an injury or as we get older. a. Back pain is expected and may include muscle spasms for 4 to 6 weeks after surgery. The pain should gradually improve. If the pain worsens for no apparent reason, please contact the office. b. Intermittent leg pain may also be experienced and should not be concerned about unless it worsens for no apparent reason. If so, please contact the office. 5. We will provide appropriate medication within the normal guidelines of their prescribed use. We will also be very cautious and aware of potential abuse and extended duration of patients' medication needs. a. Pain medications are for your comfort and to assist with sleep and rest so that the tissue can heal. They are not provided in order to return to normal activity and should not be used through the day. To do so or worsening pain at night can result from ongoing tissue damage and development of tolerance to the prescribed medicine. 6. Please allow 2-3 days to process refills. Prescriptions will not be mailed but must be picked up at the office. FOLLOW UP VISIT: Keep your scheduled follow-up appointment. Any questions, please call the office at . Pending Studies at Discharge: No Stand-Alone Forms: My [facility] [employer], Smoking Cessation Medications and DC Order Prescriptions: New tramadol 50 mg tablet 50 mg PO Q6H PRN (Reason: pain, moderate) Qty: 30 RF: 0 oxycodone 5 mg tablet 5 mg PO Q6H PRN (Reason: pain, severe) Qty: 30 RF: 0 Continued aspirin [Aspir-Low] 81 mg Tablet,Delayed Release (Dr/Ec) 81 mg PO HS RF: 0 glimepiride 2 mg Tablet 2 mg PO QAM RF: 0 colesevelam [WelChol] 625 mg Tablet 3 tab PO BID RF: 0 metformin 1,000 mg Tablet 1,000 mg PO BID RF: 0 omeprazole 20 mg Capsule,Delayed Release(Dr/Ec) 20 mg PO QAM RF: 0 docusate sodium [Stool Softener] 100 mg Tablet 100 mg PO BID RF: 0 fenofibrate 160 mg Tablet 160 mg PO QPM RF: 0 valsartan 160 mg Tablet 160 mg PO QAM RF: 0 Vitamin D3 1 tab PO QPM RF: 0 metoprolol succinate 25 mg Tablet Extended Release 24 Hr 12.5 mg PO QAM RF: 0 Eliquis 5 mg Tablet 5 mg PO BID RF: 0 celecoxib [Celebrex] 200 mg Capsule 200 mg PO QAM RF: 0 cholecalciferol (vitamin D3) 50 mcg (2,000 unit) Tablet 50 mcg PO DAILY RF: 0 amlodipine 5 mg tablet 5 mg PO DAILY RF: 0 Discharge Orders: Discharge Order (Routine); Ordered 03/12/21 Ordered By: Gael Linder/Other Patient Handouts: High Blood Sugar (Hyperglycemia), Hypoglycemia (Low Blood Sugar), Managing Type 2 Diabetes Admission Data Admit Date/Time: 03/09/21 12:25 Attending Provider: Gael Ibanez Admit Provider: Gael Ibanez Primary Care Provider: Radha Monroe Other Providers: Vijaya Gibbs ; Harley Lazaro
== END 2021-03-12 13:10 | disposition home or self-care (01) | DRG 455 ==
LOC: ASU 07:45 → 3E 12:25